=== PATIENT | female | born 1945 | race Caucasian/White ===

== ENCOUNTER 2016-05-28 14:58 | Observation (INO) | payer MEDICARE, OTHER ==
[~2016-05-28] VITALS: Ht 175.3 cm; Wt 85.5 kg
[~2016-05-28 14:58] MED LIST: ALENDRONATE SOD70 MG PO; APRISO0.375 GM PO; CYTOTEC100 MCG PO; HYDROCODON-ACE1 EAC7 PO; IBUPROFEN800 MG PO; LIPITOR40 MG PO; LISINOPRIL5 MG PO; MELATONIN 3 MG1 TAB PO; MELATONIN PO; MIRAPEX0.125 MG PO; MULTI-DAY VITAM1 TAB PO; PERCOCET 5-3251 TAB PO; PREVACID30 MG PO; PRINIVIL10 MG PO; PROBIOTIC1 EAC1 PO; PROSCAR5 MG PO; RESTORIL15 MG PO; TYLENOL PM1 TAB PO; ULTRAM50 MG PO; ZYLOPRIM300 MG PO
[2016-05-28 19:54] LABS: BASOPHILS 0.1 % (0.0-2.0); EOSINOPHILS 0.3 % (0-7); HEMATOCRIT 35.5 % (36.0-48.0); HEMOGLOBIN 11.3 g/dL (12-16); IMMATURE GRANULOCYTES 0.3 % (0-5); LYMPHOCYTES 10.2 % (15-50); MCH 28.7 pg (26.0-34.0); MCHC 31.8 g/dL (31.0-37.0); MCV 90.1 fL (80.0-100.0); MEAN PLATELET VOLUME 10.1 fL (7.4-10.4); MONOCYTES 5.6 % (2-11); NEUTROPHILS 83.5 % (40-80); PLATELET COUNT 303 10x3/uL (130-400); RBC 3.94 10x6/uL (4.00-5.40); RDW 14.7 % (11.5-14.5); WBC 14.4 10x3/uL (4.8-10.8)
[2016-05-28 20:15] LABS: ALBUMIN 4.1 g/dL (3.4-5.0); ANION GAP 14.7 mmol/L (8-16); BILIRUBIN - TOTAL 0.29 mg/dL (0.2-1.3); CALCIUM 10.4 mg/dL (8.5-10.1); CARBON DIOXIDE 25.9 mmol/L (21.0-32.0); CREATININE - SERUM 1.1 mg/dL (0.6-1.3); POTASSIUM - SERUM 4.6 mmol/L (3.5-5.1); PROTEIN - SERUM 6.9 g/dL (6.4-8.2)
[2016-05-28 20:34] LABS: INR 0.95 (0.85-1.17); PROTIME 12.5 SECONDS (11.6-15.0)
--- NOTE | 2016-05-28 21:30 | NUR ---
RECIEVED TO ROOM FROM ER VIA WHEELCHAIR ACCOMPAINIED BY ER STAFF AND . AWAKE,ALERT,ORIENTED, TRANSFERRED TO BED WITH ASSIST. CAST SPLINT INTACT TO RIGHT LOWER LEG.LEFT ANKLE WITH EDEMA NOTED.RIGHT LEG ELEVATED ON PILLOW. SL PATENT TO RIGHT AC WITH NO REDNESS OR EDEMA NOTED.
--- NOTE | 2016-05-29 02:23 | NUR ---
NS @ 75 CC/H STARTED PER ORDERS. NPO AT MN FOR POSSIBLE OR IN AM
[2016-05-29 03:19] VITALS: BP 131/62; Ht 175.3 cm; Wt 85.5 kg
--- NOTE | 2016-05-29 03:19 | NUR ---
ASSESSMENT PER ADMIT PACKET. RT ANKLE WITH JONELLE WRAP AND SPLINT NOTED.
[2016-05-29 04:00] VITALS: BP 99/39
--- NOTE | 2016-05-29 06:32 | NUR ---
NO CHANGE IN ASSESSMENT. CL IN REACH
--- NOTE | 2016-05-29 07:00 | NUR ---
REPORT RECIEVED ASSUMED CARE. PATIENT IN BED WITH IV INTACT. NO COMPLAINTS AT THIS TIME. CALL LIGHT WITHIN REACH.
[2016-05-29] MEDS ORDERED: HYDROCODONE-APA1 TAB PO (07:52)
[2016-05-29 08:08] VITALS: BP 129/69
--- NOTE | 2016-05-29 10:00 | NUR ---
PATIENT RECIEVED DISCHARGE INSTRUCTIONS. VERBALIZED UNDERSTANDING. DRESSING TO RIGHT LOWER EXTREMITY INTACT. RIGHT AC IV REMOVED WITH CATH TIP INTACT. PRESCRIPTION GIVEN TO PATIENT. CALL LIGHT WITHIN REACH.
--- NOTE | 2016-05-29 10:26 | NUR ---
Patient Name: KATELIN LLOYD Admission Status: ER Accout number: [id number] Admission Date: 05-28-2016 : 1945 Admission Diagnosis:NONDISP FX OF LATERAL MALLEOLUS OF RIGHT FIBULA, INIT Attending: LESTER Current LOS: 1 Anticipated DC Date: Planned Disposition: Primary Insurance: MEDICARE A & B Discharge Planning Comments: CM MET WITH PATIENT AND FAMILY REGARDING D/C PLANS AND NEEDS. PATIENT STATED SHE HAS 3 STEPS W/O RAILS TO ENTER HOME AND NO STAIRS INSIDE. PATIENTS FAMILY WILL DRIVE HER HOME AT DISCHARGE. PATIENT IS INDEPENDENT WITH HER CARE AND HAS NO DME AT HOME. PATIENTS PCP IS DR. NEUMANN AND PHARMACY IS [facility]. PATIENT REFUSED HOME HEALTH. PT STATED PATIENT WOULD NEED A WHEELCHAIR AND [employer] WILL DELIVER THIS TO PATIENTS HOME. FAMILY WILL BE PROVIDING THE WALKER. CM WILL CONTINUE TO FOLLOW PATIENT WITH D/C NEEDS AND PLANS. WILL (SPOUSE) [phone] SHALOM (DAUGHTER) [phone] It Business Analyst: Lenore Trivedi Is the patient Alert and Oriented? Yes 0 * How many steps to enter\exit or inside your home? 3 W/O RAIL 0 * PCP DR. NEUMANN 0 * Pharmacy [facility] * Preadmission Environment Home with Family 0 * ADLs Independent 0 * Equipment None 0 * List name and contact numbers for known caregivers / representatives who currently or will assist patient after discharge: WILL (SPOUSE)[phone] SHALOM (DAUGHTER) [phone] 0 * Community resources currently utilized None 0 * Additional services required to return to the preadmission environment? Yes 0 * Can the patient safely return to the preadmission environment? Yes 0 * Has this patient been hospitalized within the prior 30 days at any hospital? No 0 Grand Total: 0
--- NOTE | 2016-06-05 08:25 | DS ---
PATIENT:KATELIN LLOYD :[birth year] MEDICAL RECORD: [id number] DISCHARGE SUMMARY ADMISSION DATE: 05/28/16 DISCHARGE DATE: 05/29/16 ADMITTING DIAGNOSIS: Right ankle fracture. DISCHARGE DIAGNOSIS: Right ankle fracture. HOSPITAL COURSE: Hospitalization occurred after fall last p.m. She reportedly had a significant fracture in the ER, so she was admitted. She has at this juncture been evaluated in the hospital. The fracture does not appear to be significant. It is not displaced. It is felt that she can be discharged. She will need to be nonweightbearing. We will write her for some pain medications. Plan will be to see her back in the office in about 2 weeks. She will call if she is having any problems and we will proceed from this juncture. TRANSINT:[id number] Voice Confirmation ID: [id number] DOCUMENT ID: [id number] VICKY WATKINS MD at 0825 CC: [id number] DICTATION DATE: 05/29/16 0750 HOUSE MOVING SUPERVISOR: 05/29/16 0857 DIS IN 05/29/16 [address] [id number] [place] [address]
--- NOTE | 2016-06-05 08:25 | HP ---
PATIENT: KATELIN LLOYD MEDICAL RECORD: [id number] ACCOUNT: [id number] LOCATION:D.MS [facility] : [birth year] ADMISSION DATE: 05/28/16 HISTORY AND PHYSICAL EXAMINATION DATE OF ADMISSION: 05/28/2016 ADMITTING DIAGNOSIS: Right ankle fracture. HISTORY OF PRESENT ILLNESS: This is a pleasant 70-year-old female. She was taking some groceries when she tripped and fell, twisting her right knee, also hitting her elbow and her knee. PAST MEDICAL HISTORY AND PAST SURGICAL HISTORY: She has a history of hypertension. She has had a colonoscopy, tonsillectomy, cervical ablations procedure. ALLERGIES: She has no known allergies. MEDICATIONS: She has been taking oxycodone, Prevacid, ____, probiotic, Lipitor, Mirapex, Restoril, Ultram, and Prinivil. She has also been on some Tylenol ____. SOCIAL HISTORY: She does not smoke. She drinks occasionally. PHYSICAL EXAMINATION: GENERAL: She is awake. She is oriented. She is answering questions well. HEENT: Within normal limits. CARDIOVASCULAR: Regular rhythm. LUNGS: Clear. ABDOMEN: Benign. EXTREMITIES: She has a bruise on the back of her right arm. She has an abrasion on her right knee. Her ankle is wrapped, she is able to wiggle her toes. Light touch is intact. She is definitely tender about the lateral malleolus, ____ tibia. She is not malaligned. She is only mildly swollen. She is neurovascularly intact. There are no significant lesions noted in any other area. LABORATORY DATA: Her white count is 14.4, H&H is 11.3 and 35.5. Her platelets are 303. Her PT is 12.5, INR is 0.95. IMAGING: X-rays of her left ankle are normal. X-rays of her right ankle show a distal fibula fracture. She does not have any significant displacement noted on these films. A followup CT examination was done as well. This showed just a nondisplaced distal fibula fracture, some mild small fracture and the distal tibia is certainly not displaced. ASSESSMENT: At this juncture, nondisplaced right ankle fracture. PLAN: She needs to be nonweightbearing, but certainly I think she can be not treated operatively. We will discharge her and proceed from this juncture. TRANSINT:[id number] Voice Confirmation ID: [id number] DOCUMENT ID: [id number] HISTORY AND PHYSICAL [id number] KATELIN LLOYD, VICKY RAMIREZ MD at 0825 CC: [id number] DICTATION DATE: 05/29/16 0749 GENERAL PARTNER: 05/29/16 0838 DIS IN 05/29/16 [place] [address] [id number] [place] [id number]
== END 2016-05-29 12:52 | disposition home or self-care (01) ==
LOC: D.ER 14:58 → OBSVTIME 18:32 → D.MS 18:32 → D.ER 20:50 → D.MS 20:50
PROVIDERS: Nurse Practitioner Acute Care; ADMIT Orthopaedic Surgery Sports Medicine
DX: S82.64XA Nondisplaced fracture of lateral malleolus of right fibula, initial encounter for closed fracture (principal); W01.0XXA Fall on same level from slipping, tripping and stumbling without subsequent striking against object, initial encounter

== ENCOUNTER → 2016-12-15 17:06 | Outpatient (CLI) | payer MEDICARE, OTHER ==
[2016-05-29 03:19] VITALS: BMI 27.8
[~2016-12-15 17:06] MED LIST changes: +HYDROCODONE-APA1 TAB PO
== END | disposition home or self-care (01) ==
LOC: D.MAMMO 13:15
DX: Z12.31 Encounter for screening mammogram for malignant neoplasm of breast (principal)

== ENCOUNTER → 2017-12-15 12:43 | Outpatient (CLI) | payer MEDICARE ==
[2016-05-29 03:19] VITALS: BMI 27.8
== END | disposition home or self-care (01) ==
LOC: D.MRI 12:43
DX: M54.6 Pain in thoracic spine (principal)

== ENCOUNTER 2017-12-28 08:00 | Outpatient (CLI) | payer MEDICARE, OTHER ==
[2016-05-29 03:19] VITALS: BMI 27.8
== END 2017-12-28 09:00 | disposition home or self-care (01) ==
LOC: D.MAMMO 08:00
DX: Z12.31 Encounter for screening mammogram for malignant neoplasm of breast (principal)

== ENCOUNTER 2018-06-12 11:47 | Inpatient (IN) | payer MEDICARE ==
[~2018-06-12] VITALS: Ht 175.3 cm; Wt 81.8 kg
[2018-06-12] VITALS (7 sets, daily range): BP systolic 113–155; BP diastolic 58–75; BMI 26.6
--- NOTE | 2018-06-12 12:02 | NUR ---
TRAUMA BAND [id number]
--- NOTE | 2018-06-12 13:21 | NUR ---
REPORT GIVEN TO SIDNEY FAJARDO, UTILIZING SBAR FORMAT.
[2018-06-12 14:18] LABS: BASOPHILS 0.2 % (0-2); EOSINOPHILS 0.2 % (0-7); HEMATOCRIT 37.7 % (36.0-48.0); HEMOGLOBIN 12.1 g/dL (12-16); IMMATURE GRANULOCYTES 0.5 % (0-5); LYMPHOCYTES 14.5 % (15-50); MCH 27.1 pg (26.0-34.0); MCHC 32.1 g/dL (31.0-37.0); MCV 84.3 fL (80.0-100.0); MONOCYTES 5.7 % (2-11); NEUTROPHILS 78.9 % (40-80); PLATELET COUNT 321 10x3/uL (130-400); RBC 4.47 10x6/uL (4.00-5.40); RDW 14.5 % (11.5-14.5); WBC 15.2 10x3/uL (4.8-10.8)
[2018-06-12 14:34] LABS: APTT 22.7 SECONDS (22.8-39.4); INR 1.02 (0.85-1.17); PROTIME 12.9 SECONDS (11.6-15.0)
[2018-06-12 14:37] LABS: ANION GAP 17.2 mmol/L (8-16); BILIRUBIN - TOTAL 0.4 mg/dL (0.2-1.3); CALCIUM 9.5 mg/dL (8.5-10.1); CARBON DIOXIDE 20.5 mmol/L (21.0-32.0); CREATININE - SERUM 1.3 mg/dL (0.6-1.3); POTASSIUM - SERUM 4.7 mmol/L (3.5-5.1); PROTEIN - SERUM 7.2 g/dL (6.4-8.2)
--- NOTE | 2018-06-12 17:41 | NUR ---
PT ARRIVES TO ROOM VIA STRETCHER AND AMBULATES FROM STRETCHER TO BED. FAMILY IS AT BEDSIDE. RIGHT ARM IS BANDAGED. THE PT DOES HAVE A CHIPPED UPPER TOOTH. BED IS IN LOWEST POSITION. CALL LIGHT AND BEDSIDE TABLE ARE WITHIN REACH.
--- NOTE | 2018-06-12 19:45 | NUR ---
PT SITTING UP IN BED, NO SIGNS OF DISTRESS. ALERT AND ORIENTED. IV LEFT AC INFUSING NS @ 125. NO REDNESS OR SWELLING AT INSERTION SITE. RIGHT ARM IN SPLINT, PROPPED. PT UNABLE TO AMBULATE D/T PAIN IN ARM, USED BEDPAN TO VOID. SCDS ON AND IN PLACE. NO NEEDS OR COMPLAINTS AT THIS TIME. CL IN REACH, WILL CONTINUE TO MONITOR
[2018-06-13] VITALS (11 sets, daily range): BP systolic 98–171; BP diastolic 61–78
[2018-06-13 05:32] LABS: BASOPHILS 0.1 % (0-2); EOSINOPHILS 0.7 % (0-7); HEMATOCRIT 32.5 % (36.0-48.0); HEMOGLOBIN 10.3 g/dL (12-16); IMMATURE GRANULOCYTES 0.2 % (0-5); LYMPHOCYTES 21.2 % (15-50); MCH 26.8 pg (26.0-34.0); MCHC 31.7 g/dL (31.0-37.0); MCV 84.4 fL (80.0-100.0); MONOCYTES 12.5 % (2-11); NEUTROPHILS 65.3 % (40-80); PLATELET COUNT 321 10x3/uL (130-400); RBC 3.85 10x6/uL (4.00-5.40); RDW 14.6 % (11.5-14.5)
[2018-06-13 05:42] LABS: WBC 9.1 10x3/uL (4.8-10.8)
[2018-06-13 06:00] LABS: ANION GAP 14.3 mmol/L (8-16); CALCIUM 8.4 mg/dL (8.5-10.1); CARBON DIOXIDE 22.2 mmol/L (21.0-32.0); CREATININE - SERUM 1.1 mg/dL (0.6-1.3); POTASSIUM - SERUM 4.5 mmol/L (3.5-5.1)
--- NOTE | 2018-06-13 07:30 | NUR ---
PT RESTING IN BED AWAKE. REPORTS MILD ANXIETY REGARDING UPCOMING SURGICAL PROCEDURE. RESP EVEN AND [id number]. SPLINT TO RIGHT ARM. FINGERS WARM TO TOUCH, ABLE TO MOVE FINGERS. IV TO LEFT AC WITH NS @ 125ML/HR INFUSING VIA PUMP. SITE WITHOUT REDNESS OR EDEMA. REPORTS PAIN 5/10 AT THIS TIME. DENIES FURTHER NEEDS AT THIS TIME. CL WITHIN REACH. ENCOURAGED TO CALL WITH NEEDS. DENIES FURTHER QUESTIONS REGUARDING UPCOMING PROCEDURE. CONTINUE WITH POC
--- NOTE | 2018-06-13 20:00 | NUR ---
RESTING IN BED C/O PAIN TO RIGHT ARM WHICH HAS JONELLE WRAP IN PLACE, ABLE TO MOVE FINGERS WARM TO TOUCH IV INFUSING WITHOUT DIFFICULTY SCDS IN USE, CALL LIGHT IN REACH WILL MEDICATE FOR PAIN AND CONTINUE TO MONITOR
[2018-06-14] VITALS (7 sets, daily range): BP systolic 88–163; BP diastolic 53–73
[2018-06-14 05:24] LABS: HEMATOCRIT 34.7 % (36.0-48.0); MCH 27.3 pg (26.0-34.0); MCHC 31.7 g/dL (31.0-37.0); MCV 86.1 fL (80.0-100.0); MEAN PLATELET VOLUME 9.5 fL (7.4-10.4); PLATELET COUNT 277 10x3/uL (130-400); RBC 4.03 10x6/uL (4.00-5.40); RDW 14.7 % (11.5-14.5)
[2018-06-14 05:29] LABS: IMMATURE GRANULOCYTES 0.3 % (0-5)
[2018-06-14 05:49] LABS: ANION GAP 19.2 mmol/L (8-16); CALCIUM 8.3 mg/dL (8.5-10.1)
[2018-06-14 06:06] LABS: POTASSIUM - SERUM 5.2 mmol/L (3.5-5.1)
--- NOTE | 2018-06-14 07:15 | NUR ---
MORNING ASSESSMENT COMPLTE. SEE ASSESSMENT FLWOSHEET FOR FURTHER DETAILS. PT LYING IN BED AAO X4 TO PERSON, PLACE, TIME AND SITUATION. REPORTS PAIN TO R SHOULDER- ALERTED DR. SANCHEZ AND WILL CHANGE MEDICATIONS FOR COMFORT. DAUGHTER AT BEDSIDE. DENIES FURTHER NEEDS AT THIS TIME. CL IN REACH. SIDE RAILS UP X3 FOR PATIENT SAFETY
[2018-06-14 07:55] LABS: LYMPHOCYTES 17 % (15-50); MONOCYTES 11 % (2-11); NEUTROPHILS 70 % (40-80); PLATELET ESTIMATE NORMAL; ROULEAUX OCC
--- NOTE | 2018-06-14 12:54 | OP ---
PATIENT NAME: KATELIN LLOYD MEDICAL RECORD: [id number] :[birth year] LOCATION:D.MS [facility]201 ADMISSION DATE:06/12/18 SURGEON: JOSESITO SANCHEZ DO DATE OF OPERATION: 06/13/2018 PROCEDURE PERFORMED: Right olecranon open reduction and internal fixation and radial head arthroplasty. PREOPERATIVE DIAGNOSES: Right comminuted intra-articular olecranon fracture and right radial neck fracture. POSTOPERATIVE DIAGNOSES: Right comminuted intra-articular olecranon fracture and right radial neck fracture. INDICATIONS: Ms. Lloyd is a 72-year-old female who was working at [employer] and slipped and fell. She said she did have a face plant and she broke her elbow as well. She was brought into the ER, seen in the ER and admitted. She was informed, she will need her elbow fixed as it was very comminuted through the articular surface of the olecranon. I informed her I will do the best I could and that she is at good risk for any nerve damage to the nerves in the area, fixing it as well as the need for further surgery, implant failure, and loss of motion of the elbow. She was okay with that and understood the risks as well as blood loss and damage to the nerves, she signed the consent. SURGEON: Josesito Sanchez DO DESCRIPTION OF PROCEDURE: The patient was taken to the operative suite, placed in the left lateral decubitus position with an axillary roll under the axilla. The right upper extremity was prepped and draped in a sterile fashion with a tourniquet under the drapes. The incision then began over the olecranon and then moved slightly radial and the fracture was exposed and the very comminuted olecranon pieces fell out of the articular surface. These were placed on the back table and they are very small, had a very little chance of getting them back in and she had a very difficult time getting the reduction. She had a split down the proximal ulna down the shaft and had a very difficult time reducing it and started to address the radial head. A Tran approach was then used, peeling off the anconeus off the ulna and peeling up into where the radial head was. Radial head neck was cut as the fracture was jagged and had displaced and then broached and reduced and then seemed to be a little proud or a little overstuffed and about 2 mm more were taken off the neck and then a stem was placed down and had a 12 x 200 mm head was used. This was then reduced and then the fracture seemed to displace down the shaft. Plate was then put on in hopes of getting the reduction of the olecranon. This did not occur and after a quite difficult time with some of the pieces, decided to advance the larger piece of the olecranon forward taking out some of the comminuted pieces. Once this happened, a split through the ulna displaced again and then decided to try to use a button to reduce it. This did not work. Then, a [id number] clamp was used to finally getting a good reduction and the screws were placed from one side to the other getting a reduction of the fracture. Four of them were placed. They were 2.5 mm screws. Once this reduction was good, the plate was put back on and locked on the olecranon and then cortical screws were put in the shaft more distally, due to the split they could not put in more proximally. I believe there were 4 screws put in distally, 3 locking and 1 cortical, then several cortical screws have OPERATIVE REPORT [id number] KATELIN LLOYD been taken out prior to getting the final implant in. A home run screw was used through the olecranon plate and into the coronoid. This had a nice bite and good reduction. The elbow was then irrigated and ranged and seen to be very stable. X-rays were taken in AP and lateral x-rays and seemed to be in good position. She had good motion of it. The radial head was in good position as well. Then, a JuggerKnot was used to put back the peeled away tendon through Tran approach to the olecranon itself. This was done laterally and then grabbed some pieces medially as well. This was sutured down and had a nice fixation. A 0 Vicryl was then used to close the muscle bellies of the fascia together over the plate and then 2-0 Vicryl in an inverted-interrupted fashion was used to close the skin in an inverted-interrupted fashion. A ZipLine was placed on the skin. The patient was then awakened and taken to the recovery in stable condition. She did have the tourniquet up during the procedure for 111 minutes. The right upper extremity was esmarched and the tourniquet was inflated to 250 mmHg and at 111 minutes, it was let down. ESTIMATED BLOOD LOSS: Blood loss was approximately 200 mL. COMPLICATIONS: None. TRANSINT:[id number] Voice Confirmation ID: [id number] DOCUMENT ID: [id number] JOSESITO SANCHEZ DO at 1254 CC: [id number] DICTATION DATE: 06/13/18 1735 INVENTORY SPECIALIST MANAGER: 06/13/18 2219 ADM IN [facility] [address] [id number]
--- NOTE | 2018-06-14 13:07 | NUR ---
RESITED PIV TO RIGHT INNER FA X1 ATTEMPT. PT TOLERATED WELL.
[2018-06-15 00:01] VITALS: BP 137/70
--- NOTE | 2018-06-15 01:18 | NUR ---
REC'D. IN BED HOB ELEVATED 30 DEGREES POSTERIOR SPLINT WITH ACEWRAP DRESSING AND SLING IN PLACE. MINIMAL SWELLING TO ALL FINGERS.UNABLE TO ASSESS NAILBEDS FINGERNAILS ALL FIVE HAS NAIL UKRAINIAN ON THEM WIGGLES WITHOUT DIFFICULTY ARM ELEVATED DENIES NUMBNESS. WILL CONTINUE TO ASSESS FOR ANY CHGES IN NEUROVASCULR STATUS AND FOLLOW CURRENT PLAN OF CARE.
[2018-06-15 04:49] VITALS: BP 123/71
[2018-06-15 05:16] LABS: BASOPHILS 0.1 % (0-2); EOSINOPHILS 0.4 % (0-7); HEMATOCRIT 27.9 % (36.0-48.0); IMMATURE GRANULOCYTES 0.4 % (0-5); LYMPHOCYTES 12.7 % (15-50); MCH 26.9 pg (26.0-34.0); MCHC 32.3 g/dL (31.0-37.0); MEAN PLATELET VOLUME 9.3 fL (7.4-10.4); MONOCYTES 9.1 % (2-11); NEUTROPHILS 77.3 % (40-80); PLATELET COUNT 277 10x3/uL (130-400); RBC 3.34 10x6/uL (4.00-5.40); RDW 14.2 % (11.5-14.5); WBC 10.7 10x3/uL (4.8-10.8)
[2018-06-15 05:23] LABS: MCV 83.5 fL (80.0-100.0)
[2018-06-15 05:36] LABS: ANION GAP 12.6 mmol/L (8-16); CALCIUM 7.9 mg/dL (8.5-10.1); CARBON DIOXIDE 22.4 mmol/L (21.0-32.0); CREATININE - SERUM 0.9 mg/dL (0.6-1.3)
--- NOTE | 2018-06-15 07:15 | NUR ---
MORNING ASSESSMENT COMPLETE. SEE ASSESSMENT FLOWSHEET FOR FURTHER DETAILS. PT LYING IN BED AAO X4 TO PERSON, PLACE, TIME AND SITUIATION. C/O R SHOULDER PAIN- WILL GIVE DILAUDID IV WITH MORNING MEDS. PT GETTING UP TO BSC. STATES SHE IN DISCHARGING TODAY. CL IN REACH. SIDE RAILS UP X3 FOR PATIET SAFETY.
[2018-06-15] MEDS ORDERED: KEFLEX500 MG PO (07:30)
[2018-06-15] MEDS ORDERED: OXYCODONE HCL5 M1 PO (07:30)
[2018-06-15] MEDS ORDERED: VISTARIL50 MG PO (07:30)
[2018-06-15 08:00] VITALS: BP 158/76
[2018-06-15 12:30] VITALS: BP 145/64
[2018-06-15 14:59] LABS: HEMATOCRIT 28.1 % (36.0-48.0); HEMOGLOBIN 9.1 g/dL (12-16); MCH 27.2 pg (26.0-34.0); MCHC 32.4 g/dL (31.0-37.0); MCV 83.9 fL (80.0-100.0); RBC 3.35 10x6/uL (4.00-5.40); RDW 14.1 % (11.5-14.5); WBC 10.7 10x3/uL (4.8-10.8)
[2018-06-15 16:00] VITALS: BP 131/55
--- NOTE | 2018-06-15 16:42 | MORECARE ---
CASE MANAGEMENT DISCHARGE SUMMARY PATIENT: KATELIN LLOYD UNIT: [id number] ADM DATE: 06/15/18 AGE: 72 : 46 SEX: F ROOM/BED: D.2202 AUTHOR: SHERYLDOC PHYSICIAN: REFERRING PHYSICIAN: GORDO GUERIN MD DATE OF SERVICE: 06/15/18 Discharge Plan Patient Name: KATELIN LLOYD Facility: [facility]:[place] : 1945 Planned Disposition: Home Anticipated Discharge Date: Discharge Date: Expected LOS: Initial Reviewer: [email or web address] Initial Review Date: 06/12/2018 Generated: 06/15/18 5:42 pm Comments DCP- Discharge Planning Updated by [email or web address]: Janessa Mendez on 06/15/18 3:[address] Patient Name: KATELIN LLOYD Admission Status: ER Accout number: [id number] Admission Date: 06-15-2018 : 1945 Admission Diagnosis: Attending: GORDO GUERIN Current LOS: 1 Anticipated DC Date: Planned Disposition: Home Primary Insurance: [employer] Discharge Planning Comments: CM met with patient to assess discharge planning needs. Patient lives independently at home with her and plans to return there at DC. Her daughter will be the one to drive her home at DC. She denies any DME or HH services and does not think she will need any at DC. She feels like she is safe to DC home. CM will continue to follow and assist with DC planning needs Cupola Liner: Janessa Mendez DCPIA - Discharge Planning Initial Assessment Updated by [email or web address]: Janessa Mendez on 06/15/18 4:38 pm * Is the patient Alert and Oriented? Yes * How many steps to enter\exit or inside your home? * PCP THIEN * [facility] * Preadmission Environment Home with Family * ADLs Independent * Equipment None * List name and contact numbers for known caregivers / representatives who currently or will assist patient after discharge: WILL () [phone] * Verbal permission to speak to the caregivers and representatives has been obtained from the patient. N/A * Community resources currently utilized None * Additional services required to return to the preadmission environment? No * Can the patient safely return to the preadmission environment? Yes * Has this patient been hospitalized within the prior 30 days at any hospital? No Patient Name: KATELIN LLOYD Page [id number] at 1642 All edits/amendments must be made on the electronic document DICTATION DATE: 06/15/181641 HOT STRIP FINISHER: DERREK 06/15/181641 RPT#: [id number] DC DATE: STATUS: ADM IN [facility] [address] [place] [address] END OF REPORT
[2018-06-15 21:25] VITALS: BP 140/62
--- NOTE | 2018-06-16 01:06 | NUR ---
Pt in bed resprations even and unlabored no s/s of distress calll light in reach.
--- NOTE | 2018-06-16 04:49 | NUR ---
1930) REC'D AT [facility]. OF SHIFT IN BED EYES CLOSED RESP. DEEP AND EVEN. AT BEDSIDE.LONG ARM SPLINT WITH ACEWRAP AND SLING INTACT UP ON PILLOW.MINIMAL SWELLING OBSERVED STILL IN ALL FIVE FINGERS.UNABLE TO ACESS NAILBEDS DUE TO ENGLISH. WILL CONTINUE TO MOITOR FOR ANY CHGES. AND FOLLOW CURRENT PLAN OF CARE.
[2018-06-16 06:12] VITALS: BP 147/58
[2018-06-16 06:50] LABS: ANION GAP 14.5 mmol/L (8-16); CARBON DIOXIDE 22.4 mmol/L (21.0-32.0); CREATININE - SERUM 0.9 mg/dL (0.6-1.3); POTASSIUM - SERUM 3.9 mmol/L (3.5-5.1)
[2018-06-16 06:51] LABS: BASOPHILS 0.2 % (0-2); EOSINOPHILS 3.1 % (0-7); HEMATOCRIT 26.4 % (36.0-48.0); HEMOGLOBIN 8.3 g/dL (12-16); IMMATURE GRANULOCYTES 0.3 % (0-5); LYMPHOCYTES 20.4 % (15-50); MCH 26.4 pg (26.0-34.0); MCHC 31.4 g/dL (31.0-37.0); MCV 84.1 fL (80.0-100.0); MEAN PLATELET VOLUME 9.3 fL (7.4-10.4); MONOCYTES 10.4 % (2-11); NEUTROPHILS 65.6 % (40-80); PLATELET COUNT 284 10x3/uL (130-400); RBC 3.14 10x6/uL (4.00-5.40); RDW 14.3 % (11.5-14.5); WBC 8.8 10x3/uL (4.8-10.8)
--- NOTE | 2018-06-16 07:42 | NUR ---
PT ALERT X 4. BREATH SOUNDS CLEAR BILAT. RIGHT ARM CAST AND SLING. RIGHT HAND +1 EDEMA. IV TO LEFT FOREARM, SALINE LOCKED. TRACE EDEMA TO BILAT LOWER EXTREMITIES. PT REPORTING NO PAIN THIS MORNING. BED LOW, CALL LIGHT IN REACH, NO OTHER NEEDS AT THIS TIME.
[2018-06-16 09:13] VITALS: BP 131/68
--- NOTE | 2018-06-16 10:00 | NUR ---
RESTING QUIETLY IN BED. DENIES NEEDS. FAMILY AT BEDSIDE.
--- NOTE | 2018-06-16 10:55 | NUR ---
REQUESTED AND GIVNE ONE OXY IR PO FOR C/O RIGHT ARM PAIN LEVEL 8. WILL MONITOR.
[2018-06-16 15:16] VITALS: BP 144/74
[2018-06-16 16:57] LABS: % SATURATION 9 % (15-55); IRON 15 ug/dl (35-150); TOTAL IRON BIND CAPACITY 165 ug/dl (260-445); UNSAT IRON BIND CAPACITY 150 ug/dl (150-375)
[2018-06-16 17:18] VITALS: Ht 175.3 cm; Wt 81.8 kg
[2018-06-16 17:52] VITALS: BP 120/62
--- NOTE | 2018-06-16 20:00 | NUR ---
HAD GOOD BM AFTER DULCOLAX SUPPOSITORY. SPECIMEN SENT TO LAB. DR. SANCHEZ HERE AND CHANGED DRESSING TO RIGHT ARM. DENIES NEEDS. NO CHANGES NOTED.
[2018-06-16 22:18] VITALS: BP 127/60
[2018-06-17 01:51] VITALS: BP 135/70
--- NOTE | 2018-06-17 03:32 | NUR ---
RESTING QUITELY IN BED RESP UNLABOARED CALL LIGHT IN REACH NO APPARENT DISTRESS
[2018-06-17 05:05] LABS: BASOPHILS 0.2 % (0-2); EOSINOPHILS 3.7 % (0-7); HEMATOCRIT 26.4 % (36.0-48.0); HEMOGLOBIN 8.4 g/dL (12-16); IMMATURE GRANULOCYTES 0.2 % (0-5); LYMPHOCYTES 20.8 % (15-50); MCH 26.7 pg (26.0-34.0); MCHC 31.8 g/dL (31.0-37.0); MCV 83.8 fL (80.0-100.0); MONOCYTES 9.9 % (2-11); NEUTROPHILS 65.2 % (40-80); PLATELET COUNT 324 10x3/uL (130-400); RBC 3.15 10x6/uL (4.00-5.40); RDW 14.2 % (11.5-14.5); WBC 8.7 10x3/uL (4.8-10.8)
[2018-06-17 05:29] LABS: ANION GAP 12.7 mmol/L (8-16); CALCIUM 8.6 mg/dL (8.5-10.1); CARBON DIOXIDE 25.8 mmol/L (21.0-32.0); POTASSIUM - SERUM 3.5 mmol/L (3.5-5.1); THYROID STIMULATING HORMONE 0.18 uIU/mL (0.36-3.74)
[2018-06-17 05:30] VITALS: BP 133/64
[2018-06-17 08:44] VITALS: BP 138/69
[2018-06-17 11:45] VITALS: BP 136/70
[2018-06-17 11:52] VITALS: BP 82/57
--- NOTE | 2018-06-17 11:53 | NUR ---
HINGED PILLOW BRACE ON RIGHT ELBOW. CO PAIN AT 9. WILL CONTINUE TO MONITOR
[2018-06-17] MEDS ORDERED: FERROUS SULFAT325 MG PO (12:02)
--- NOTE | 2018-06-17 13:35 | MORECARE ---
CASE MANAGEMENT DISCHARGE SUMMARY PATIENT: KATELIN LLOYD UNIT: [id number] ADM DATE: 06/15/18 AGE: 72 : 46 SEX: F ROOM/BED: D.2202 AUTHOR: CANDICE SAUCEDO PHYSICIAN: REFERRING PHYSICIAN: GORDO GUERIN MD DATE OF SERVICE: 06/17/18 Discharge Plan Patient Name: KATELIN LLOYD Facility: [facility]:[place] : 1945 Planned Disposition: Home Anticipated Discharge Date: Discharge Date: Expected LOS: Initial Reviewer: [email or web address] Initial Review Date: 06/12/2018 Generated: 06/17/18 2:35 pm Comments DCP- Discharge Planning Updated by [email or web address]: Janessa Mendez on 06/17/18 12:[address] Patient Name: KATELIN LLOYD Encounter No: [id number] : 1945 Primary Insurance: [employer] Anticipated DC Date: Planned Disposition: Home External Planned Provider: : DCP follow-up note: Patient and family in agreement with discharge plan. No changes to plan. Case management will follow and assist as needed. Janessa Mendez DCP- Discharge Planning Updated by [email or web address]: Janessa Mendez on 06/15/18 3:[address] Patient Name: KATELIN LLOYD Admission Status: ER Accout number: [id number] Admission Date: 06-15-2018 : 1945 Admission Diagnosis: Attending: GORDO GUERIN Current LOS: 1 Anticipated DC Date: Planned Disposition: Home Primary Insurance: [employer] Discharge Planning Comments: CM met with patient to assess discharge planning needs. Patient lives independently at home with her and plans to return there at DC. Her daughter will be the one to drive her home at DC. She denies any DME or HH services and does not think she will need any at DC. She feels like she is safe to DC home. CM will continue to follow and assist with DC planning needs Pineapple Plantation Manager: Janessa Mendez DCPIA - Discharge Planning Initial Assessment Updated by [email or web address]: Janessa Mendez on 06/15/18 4:38 pm * Is the patient Alert and Oriented? Yes * How many steps to enter\exit or inside your home? * PCP THIEN * Pharmacy [facility] * Preadmission Environment Home with Family * ADLs Independent * Equipment None * List name and contact numbers for known caregivers / representatives who currently or will assist patient after discharge: WILL () [phone] * Verbal permission to speak to the caregivers and representatives has been obtained from the patient. N/A * Community resources currently utilized None * Additional services required to return to the preadmission environment? No * Can the patient safely return to the preadmission environment? Yes * Has this patient been hospitalized within the prior 30 days at any hospital? No Last DP export: 06/15/18 3:42 pm Patient Name: KATELIN LLOYD Page 32043 at 1335 All edits/amendments must be made on the electronic document DICTATION DATE: 06/17/181333 WALLPAPER REMOVER STEAM: DERREK 06/17/181333 RPT#: [id number] DC DATE: STATUS: ADM IN [facility] [address] [place] [address] END OF REPORT
[2018-06-18 11:26] LABS: ERYTHROPOIETIN 64.8 mIU/mL (2.6-18.5)
--- NOTE | 2018-06-18 16:54 | MORECARE ---
CASE MANAGEMENT DISCHARGE SUMMARY PATIENT: KATELIN LLOYD UNIT: [id number] ADM DATE: 06/15/18 AGE: 72 : [birth year] SEX: F ROOM/BED: D.2202 AUTHOR: CANDICE SAUCEDO PHYSICIAN: REFERRING PHYSICIAN: GORDO GUERIN MD DATE OF SERVICE: 06/18/18 Discharge Plan Patient Name: KATELIN LLOYD Facility: [facility]:[place] : 1945 Planned Disposition: Home Anticipated Discharge Date: Discharge Date: 06/17/2018 Expected LOS: 0 Initial Reviewer: [email or web address] Initial Review Date: 06/12/2018 Generated: 06/18/18 5:54 pm Comments DCP- Discharge Planning Updated by [email or web address]: Janessa Mendez on 06/17/18 12:[address] Patient Name: KATELIN LLOYD Encounter No: [id number] : 1945 Primary Insurance: [employer] Anticipated DC Date: Planned Disposition: Home External Planned Provider: : DCP follow-up note: Patient and family in agreement with discharge plan. No changes to plan. Case management will follow and assist as needed. aJnessa Mendez DCP- Discharge Planning Updated by [email or web address]: Janessa Mendez on 06/15/18 3:[address] Patient Name: KATELIN LLOYD Admission Status: ER Accout number: [id number] Admission Date: 06-15-2018 : 1945 Admission Diagnosis: Attending: GORDO GUERIN Current LOS: 1 Anticipated DC Date: Planned Disposition: Home Primary Insurance: [employer] Discharge Planning Comments: CM met with patient to assess discharge planning needs. Patient lives independently at home with her and plans to return there at DC. Her daughter will be the one to drive her home at DC. She denies any DME or HH services and does not think she will need any at DC. She feels like she is safe to DC home. CM will continue to follow and assist with DC planning needs Claims Manager: Janessa Mendez DCPIA - Discharge Planning Initial Assessment Updated by [email or web address]: Janessa Mendez on 06/15/18 4:38 pm * Is the patient Alert and Oriented? Yes * How many steps to enter\exit or inside your home? * PCP THIEN * [facility] [address] * Preadmission Environment Home with Family * ADLs Independent * Equipment None * List name and contact numbers for known caregivers / representatives who currently or will assist patient after discharge: WILL () [phone] * Verbal permission to speak to the caregivers and representatives has been obtained from the patient. N/A * Community resources currently utilized None * Additional services required to return to the preadmission environment? No * Can the patient safely return to the preadmission environment? Yes * Has this patient been hospitalized within the prior 30 days at any hospital? No Last DP export: 06/17/18 12:35 pm Patient Name: KATELIN LLOYD Page 07957 at 1654 All edits/amendments must be made on the electronic document DICTATION DATE: 06/18/181653 DRAIN TECHNICIAN: DERREK 06/18/181653 RPT#: [id number] DC DATE:06/17/18 STATUS: DIS IN [facility] [address] [place] [address] END OF REPORT
== END 2018-06-17 15:54 | disposition home or self-care (01) | DRG 511 ==
LOC: D.ER 11:47 → D.MS 15:37 → D.EDHOLD 15:37 → OBSVTIME 15:37 → D.MS 17:11
PROVIDERS: Family Medicine; Internal Medicine Hematology & Oncology; Orthopaedic Surgery; ADMIT Internal Medicine Nephrology
PROC: 0PRH0JZ Replacement of Right Radius with Synthetic Substitute, Open Approach (ICD-10-PCS; 2018-06-13)
PROC: 0PSK04Z Reposition Right Ulna with Internal Fixation Device, Open Approach (ICD-10-PCS; principal; 2018-06-13 09:00)
DX: S52.031A Displaced fracture of olecranon process with intraarticular extension of right ulna, initial encounter for closed fracture (principal); N17.9 Acute kidney failure, unspecified; S52.131A Displaced fracture of neck of right radius, initial encounter for closed fracture; W01.0XXA Fall on same level from slipping, tripping and stumbling without subsequent striking against object, initial encounter; I10 Essential (primary) hypertension; E78.5 Hyperlipidemia, unspecified; D50.9 Iron deficiency anemia, unspecified; R55 Syncope and collapse

== ENCOUNTER → 2018-07-26 09:03 | Outpatient (CLI) | payer MEDICARE ==
[2018-06-16 17:18] VITALS: BMI 26.6
[~2018-07-26 09:03] MED LIST changes: +FERROUS SULFAT325 MG PO; +KEFLEX500 MG PO; +OXYCODONE HCL5 M1 PO; +VISTARIL50 MG PO
== END | disposition home or self-care (01) ==
LOC: D.HCCARDIO 09:03
PROVIDERS: ATTEND Internal Medicine Cardiovascular Disease
DX: R55 Syncope and collapse (principal)

== ENCOUNTER 2018-08-16 10:43 | Outpatient (CLI) | payer MEDICARE ==
[~2018-08-16] VITALS: Ht 175.3 cm; Wt 82.7 kg
--- NOTE | ~2018-08-16 | HEMODYNAMI ---
PATIENT:KATELIN LLOYD MEDICAL RECORD: [id number] : 47 LOCATION:D.CAT ADMISSION DATE: 08/16/18 Generatedon:08/16/201813:37 Patient name: KATELIN LLOYD Patient #: [id number] SSN: : 1945 Date of study: 08/16/2018 Page: Of Hemodynamic Procedure Report Patient Data Patient Demographics Procedure consent was obtained First Name: KATELIN Gender: Female Last Name: PREMA : 1945 [facility] Initial: L Age: 72 year(s) Patient #: [id number] Race: Unknown Additional ID: [id number] Contact details Address: [address] [place] [address] COURT State: [place] [facility] [place]: [address] Past Medical History Allergies: No known allergies Admission Admission Data Admission Date: 08/16/2018 Admission Time: 10:43 Height (in.): 69 BSA: 1.98 (m2) Height (cm.): 175.26 BMI: 26.88 (kg/m2) Weight (lbs.): 182 Weight (kg.): 82.55 Procedure Procedure Types Cath Procedure Diagnostic Procedure LHC LH w/Coronaries Sedation Charges Moderate Sedation up to 30 minutes PCI Procedure Coronary Stent Coronary Stent Initial Peripheral Cath Diagnostic Procedure Pier Hand Peripheral Procedures Four Vessel Arteriogram Procedure Description Procedure Date Procedure Date: 08/16/2018 Procedure Start Time: 13:02 Procedure End Time: 13:31 Procedure Staff Name Function Neris Mcrae RT Scrub José Miguel Aldana RT Line Welder Hi Park RN Nurse Hiren Okeefe RN Line Welder Myles Becerril MD Performing Physician Mandi Braga RT Monitor Procedure Data Cath Procedure Fluoroscopy Diagnostic fluoroscopy Total fluoroscopy Time: 5.8 time: 5.8 min min Diagnostic fluoroscopy Total fluoroscopy dose: 724 dose: 724 mGy mGy Contrast Material Contrast Material Type Amount (ml) Isovue 300 154 Entry Location Entry Primary Successful Side Size Upsize Upsize Entry Closure Succes sful Closure Location (Fr) 1 (Fr) 2 (Fr) Remarks Device Remarks Femoral Right 5 Fr 6 Fr Exoseal artery Short Estimated blood loss: 10 ml Diagnostic catheters Device Type Used For End Catheter Placement MULTIPACK JL 4.0 5Fr Procedure catheter MULTIPACK 3DRC 5Fr Procedure catheter DIAGNOSTIC IM 5Fr Procedure catheter ([id number]) MULTIPACK Pigtail 5 Fr Procedure catheter Procedure Complications No complications Procedure Medications Medication Administration Route Dosage Oxygen NRB 2 l/min Heparin Flush Bag added to field 2 bags (1000units/500ml NS) 0.9% NaCl I.V. 100 ml/hr Lidocaine 2% added to field 20 Versed I.V. 1 mg Fentanyl I.V. 50 mcg Versed I.V. 1 mg Fentanyl I.V. 50 mcg Versed I.V. 1 mg Fentanyl I.V. 50 mcg Heparin Bolus I.V. 8000 units Plavix P.O. 600 mg Hemodynamics Rest BSA: 1.98 (m2) O2 Consumption: Estimated: 191.21 (ml/min) O2 Consumption indexed : Estimated:96.57 (ml/min/m) Heart Rate: 82 (bpm) Pressure Samples Time Site Value (mmHg) Purpose Heart Use Rate(bpm) 13:10 LV 125/-4,11 EDP 91 13:10 LV 127/-1,7 Pullback 89 13:10 AO 115/59(83) Pullback 89 Gradients Valve Time Site 1 Site 2 Mean SEP/DFP Peak To Heart Use (mmHg) (sec/min) Peak Rate (mmHg) (bpm) Aortic 13:10 LV AO 13 26 12 89 127/-1,7 115/59(83) Calculations Valve P-P Mean Valve Index Valve Source Name Gradient Area Flow (cm2) Aortic 12 13 12 13 Snapshots Pre Cath Intra NCS Post Cath Vital Signs Time Heart Resp SPO2 etCO2 NIBP (mmHg) Rhythm Pain Sedation Rate (ipm) (%) (mmHg) Status Level (bpm) 12:49:33 83 17 98 0 135/76(112) NSR 0 (11) 10(A) , No pain 12:53:51 80 16 99 32 128/74(111) NSR 0 (11) 10(A) , No pain 12:58:01 83 12 98 32.8 121/73(95) NSR 0 (11) 10(A) , No pain 13:02:09 84 19 97 2.2 109/68(96) NSR 0 (11) 9(A) , No pain 13:06:19 88 18 95 11.1 110/64(80) NSR 0 (11) 9(A) , No pain 13:10:28 93 18 97 26.8 115/63(83) NSR 0 (11) 9(A) , No pain 13:14:40 95 16 97 41 116/68(87) NSR 0 (11) 9(A) , No pain 13:18:52 95 12 98 38.7 119/66(94) NSR 0 (11) 9(A) , No pain 13:23:04 96 17 99 39.5 120/70(89) NSR 0 (11) 9(A) , No pain 13:27:16 94 15 99 27.5 126/74(93) NSR 0 (11) 10(A) , No pain Medications Time Medication Route Dose Verified Delivered Reason Notes Effectiveness by by 12:53:37 Oxygen NRB 2 Hi Myles Per physician l/min Xavier Becerril MD RN 12:53:45 Heparin Flush added 2 Hi Myles used for Bag to bags Xavier Becerril MD procedure (1000units/500ml field RN NS) 12:53:56 0.9% NaCl I.V. 100 Hi Myles Per physician ml/hr Xavier Becerril MD RN 12:54:07 Lidocaine 2% added 20ml Hi Myles for local to vial Xavier Becerril MD anesthetic field RN 12:59:07 Versed I.V. 1 mg Hi Hi for sedation Xavier Park RN RN 12:59:14 Fentanyl I.V. 50 Hi Hi for sedation mcg Xavier Park RN RN 13:03:02 Versed I.V. 1 mg Hi Hi for sedation Xavier Park RN RN 13:03:06 Fentanyl I.V. 50 Hi Hi for sedation mcg Xavier Park RN RN 13:07:22 Versed I.V. 1 mg Hi Hi for sedation Xavier Park RN RN 13:07:26 Fentanyl I.V. 50 Hi Hi for sedation mcg Xavier Park RN RN 13:17:13 Heparin Bolus I.V. 8000 Hi Buffie for verifi ed units Xavier Okeefe RN anticoagulation with dr SIDNEY becerril 13:28:25 Plavix P.O. 600 Hi Maradiaga for mg Xavier Okeefe RN antiplatelet RN therapy Procedure Log Time Note 12:34:45 Time tracking: Regular hours (M-F 7:00 - 5:00) 12:34:49 Plan of Care:Hemodynamics will remain stable., Cardiac rhythm will remain stable., Comfort level will be maintained., Respiratory function will remain adequate., Patient/ family verbilizes understanding of procedure., Procedure tolerated without complication., Recovers from procedure without complications.. 12:37:32 Neris Counts RT(R) sent for patient. Start room use. 12:42:13 Patient received from Pre/Post Procedure Room to CCL 1 Alert and oriented. Tansferred to table in Supine position. 12:42:15 Correct patient and procedure confirmed by team. 12:42:15 Warm blankets applied, and bipin hugger turned on for patient comfort. 12:42:17 ECG and BP/O2 sat monitors applied to patient. 12:42:18 Signed procedure consent form obtained from patient. 12:48:23 Vital chart was started 12:48:27 Rhythm: sinus rhythm 12:48:29 Full Disclosure recording started 12:50:55 H&P Date Dictated: 07/19/2018 Within 30 days and on chart., H&P Addendum completed by physician on day of procedure. (MUST COMPLETE FOR ALL OUTPATIENTS). 12:50:56 Pre-op teaching completed and patient verbalized understanding. 12:50:56 Pre-procedure instructions explained to patient. 12:50:57 Family in patients room. 12:50:59 Patient NPO since Midnight. 12:51:04 Patient allergic to No known allergies 12:51:06 Is patient on blood thinner?No 12:51:07 Patient diabetic? No. 12:51:23 Previous problem with sedation/anesthesia? No ? 12:51:24 Snore? Yes 12:51:25 Sleep apnea? No 12:51:26 Deviated septum? No 12:51:27 Sticks out tongue? Yes 12:51:27 Opens mouth fully? Yes 12:51:29 Airway obstruction? No ? 12:51:31 Dentures? No ? 12:51:34 Pre procedure: right dorsailis pedis pulse 2+ Normal; easily identifiable; not easily obliterated 12:51:39 IV patent on arrival in left forearm with 0.9% NaCl at [facility]. 12:51:44 Right groin area was prepped with chlora-prep and draped in sterile fashion 12:51:45 Alarms reviewed by R. N. 12:51:46 Sharps counted by scrub and verified by R.N. 12:51:48 Use device set Femoral Dx 12:51:50 Bag Decanter (2002S) opened to sterile field. 12:51:50 ACIST Syringe (42234) opened to sterile field. 12:51:51 ACIST Manifold (54150) opened to sterile field. 12:51:51 ACIST Hand Control (50997) opened to sterile field. 12:51:52 Tegaderm 4 x 4 (1626W) opened to sterile field. 12:51:53 Medline Cath Pack ([id number]) opened to sterile field. 12:51:54 DIAGNOSTIC WIRE .035 260cm J wire (797710) opened to sterile field. 12:51:55 SHEATH 5FR [place]val[place] (IJZ797) opened to sterile field. 12:51:55 DIAGNOSTIC Multipack 5Fr catheter set ([id number]) opened to sterile field. 12:53:37 Oxygen 2 l/min NRB was administered by Myles Becerril MD; Per physician; 12:53:45 Heparin Flush Bag (1000units/500ml NS) 2 bags added to field was administered by Myles Becerril MD; used for procedure; 12:53:56 0.9% NaCl 100 ml/hr I.V. was administered by Myles Becerril MD; Per physician; 12:54:07 Lidocaine 2% 20ml vial added to field was administered by Myles Becerril MD; for local anesthetic; 12:56:08 Baseline sample Acquired. 12:56:14 --------ALL STOP TIME OUT------ 12:56:15 Final Timeout: patient, procedure, and site verified with staff and physician. All members of the team are in agreement. 12:56:16 Right groin site verified by team. 12:57:17 Maximum allowable Isovue 300 dose 300ml. Physician notified. (300ml for normal creatinines. For patients with creatinine of 1.7 or higher multiply weight(kg) x 5 divided by creatinine.) 12:57:22 Fire Safety Assessment: A--An alcohol-based skin anteseptic being used preoperatively., C--Open oxygen or nitrous oxide is being used., D--An ESU, laser, or fiber-optic light is being used. 12:57:24 Physical assessment completed. ASA score P 2 - A patient with mild systemic disease as per Myles Becerril MD. 12:57:28 Sedation plan: IV Moderate Sedation Medication:Versed, Fentanyl 12:58:05 Procedure type changed to Cath procedure, Diagnostic procedure, LHC, LHC w/Coronaries, Sedation Charges, Moderate Sedation up to 30 minutes, PCI procedure, Coronary Stent, Coronary Stent Initial, Peripheral Cath Diagnostic Procedure, Pier Hand Peripheral Procedures, Four Vessel Arteriogram 12:58:17 Patient Height : 69 inches 12:58:20 Patient Weight : 182 lbs 12:59:07 Versed 1 mg I.V. was administered by Hi Park RN; for sedation; 12:59:14 Fentanyl 50 mcg I.V. was administered by Hi Park RN; for sedation; 13:02:25 Zero performed for pressure channel P1 13:02:35 Procedure started. 13:02:46 Zero performed for pressure channel P1 13:02:53 Local anesthetic to right femoral artery with Lidocaine 2% by Myles Becerril MD.INITIAL ACCESS ONLY 13:03:02 Versed 1 mg I.V. was administered by Hi Park RN; for sedation; 13:03:06 Fentanyl 50 mcg I.V. was administered by Hi Park RN; for sedation; 13:04:16 A 5 Fr sheath was inserted into the Right Femoral artery 13:04:42 A MULTIPACK JL 4.0 5Fr catheter was advanced over the wire and used for Procedure. 13:07:08 LCA angiography performed. 13:07:10 Catheter exchanged over wire. 13:07:22 Versed 1 mg I.V. was administered by Hi Park RN; for sedation; 13:07:26 Fentanyl 50 mcg I.V. was administered by Hi Park RN; for sedation; 13:07:49 A MULTIPACK 3DRC 5Fr catheter was advanced over the wire and used for Procedure. 13:08:32 RCA angiography performed. 13:08:49 Catheter exchanged over wire. 13:09:30 A MULTIPACK Pigtail 5 Fr catheter was advanced over the wire and used for Procedure. 13:09:37 LV gram done using MORENO 13:09:39 Injector settings: Ml/sec: 10, Volume: 20, 13:10:07 LV hemodynamics recorded. 13:10:21 EF : 55 % 13:10:34 Catheter exchanged over wire. 13:11:09 A DIAGNOSTIC IM 5Fr catheter ([id number]) was advanced over the wire and used for Procedure. 13:12:25 Right carotid angiography performed. 13:13:17 Left carotid angiography performed. 13:13:24 Catheter exchanged over wire. 13:14:31 SHEATH 6FR [place] (HJA906) opened to sterile field. 13:14:33 INFLATOR Merit BasixCompak (GU7683) opened to sterile field. 13:14:34 TUBING High Pressure Extension Tubing (Jone) (GP1535Q) opened to sterile field. 13:14:34 BMW 300cm Straight Lefors 2 wire (2756973) opened to sterile field. 13:14:42 Sheath upsized to a 6 Fr Short. 13:14:52 GUIDE 6FR XBLAD 3.5 catheter ([id number]) opened to sterile field. 13:15:37 6 Fr XBLAD 3.5 guide catheter was inserted over the wire 13:17:13 Heparin Bolus 8000 units I.V. was administered by Hiren Okeefe RN; for anticoagulation; verified with dr becerril 13:18:31 BMW 300 wire advanced. 13:19:03 Wire advanced across lesion. 13:24:04 Place stent Inflation Number: 1 A MUKESH OTW 3.5 x 26 stent ([id number]) was prepped and advanced across the Prox LAD. The stent was deployed at 12 CASTILLO for 0:10 (min:sec). 13:24:52 Stent catheter was removed intact over wire. 13:24:53 Wire removed. 13:24:54 Guide catheter removed. 13:25:07 EXOSEAL 6Fr (EX600) opened to sterile field. 13:26:02 Sheath removed intact; hemostasis achieved with Exoseal to the Right Femoral artery. 13:26:07 Procedure ended.(Physican Out) ::24 Fluoroscopy time 05.80 minutes. ::28 Fluoroscopy dose: 724 mGy 13:26:28 Flurop Dose total: 724 13:26:34 Contrast amount:Isovue 300 154ml. 13:26:36 Sharps counted by scrub and verified by R.N. 13:27:08 Post-op/insertion site Right Femoral artery dressed using a 4 x 4 and Tegaderm. 13:27:11 Post-procedure physical assessment completed. ASA score P 2 - A patient with mild systemic disease as per Myles Becerril MD. 13:27:21 Post procedure rhythm: sinus rhythm 13::23 Estimated blood loss: 10 ml 13:27:25 Patient needs reinforcement of post procedure teaching. 13:27:25 Post procedure instruction explained to patient.Patient verbalizes understanding. 13:28:12 Procedure and supply charges have been captured, reviewed, submitted and are correct. 13:28:15 Procedure Complication : No complications 13:28:25 Plavix 600 mg P.O. was administered by Hiren Okeefe RN; for antiplatelet therapy; 13:30:57 Vital chart was stopped 13:30:58 See physician's report for complete and final results. 13:30:59 Report given to Pre/Post Procedure Room. 13:31:02 Patient transfered to Pre/Post Procedure Room with Bed. 13:31:04 Full Disclosure recording stopped 13:31:04 Procedure ended. 13:31:08 End room use (Document Last) 13:36:33 FEMSTOP Gold ([id number]) opened to sterile field. 13:36:43 Femstop placed over the right femoral artery at 160 mmHg. Hemostasis achieved. Intervention Summary Intervention Notes Time ActionType Lesion and Equipment Action# Pressure Duration Attributes Used 13:24:04 Place stent Prox LAD MUKESH OTW 3.5 1 12 00:10 x 26 stent ([id number]) Device Usage Item Name Manufacture Quantity Catalog Hospital Part Current Mini mal Lot# / Number Charge Number Stock Stock Serial# Code ACIST Syringe Acist 1 76632 690788 911202 379636 20 (89635) Medical Systems Inc Bag Decanter Microtek 1 625363 20818 382522 5 () Medical Inc. ACIST Hand Acist 1 66057 806623 391771 899464 5 Control Medical (60264) Systems Inc ACIST Acist 1 47175 527425 146191 311642 5 Manifold Medical (91466) Systems Inc Tegaderm 4 x 3M 1 1626W 689264 520467 641398 5 4 (1626W) Medline Cath Medline 1 [id number] 224666 61457 802919 5 Pack ([id number]) DIAGNOSTIC St Jonathan 1 746592 993062 690250 189468 30 WIRE .035 260cm J wire (193549) DIAGNOSTIC Cardinal 1 NF4251 096703 48785 651381 30 Multipack 5Fr Health catheter set (JP2361) SHEATH 5FR Terumo 1 IEJ478 925439 059211 169599 5 [place]valde (JVA422) MULTIPACK JL Cardinal 1 128147 5 4.0 5Fr Health catheter MULTIPACK Cardinal 1 438155 5 3DRC 5Fr Health catheter DIAGNOSTIC IM Cardinal 1 [id number] 271277 199786 783195 5 5Fr catheter Health (718532M) MULTIPACK Cardinal 1 502391 5 Pigtail 5 Fr Health catheter SHEATH 6FR Terumo 1 NUX026 823709 287738 654391 40 [place]valde (CIP472) INFLATOR Merit 1 JX6937 320831 591092 948983 15 [facility] Medical BasixCompak (ZY7288) BMW 300cm Orlando 1 [id number] 093551 579569 498894 5 Straight Vascular Lefors 2 wire (4651069) TUBING High Merit 1 [id number] 665541 38666 218383 10 Pressure Medical Extension Tubing (Becerril) (IC8259T) GUIDE 6FR Cardinal 1 38563014 167395 236440 679984 10 XBLAD 3.5 Health catheter (06004360) MUKESH OTW 3.5 Medtronic 1 [id number] 753676 3123276 817081 5 [id number] x 26 stent ([id number]) EXOSEAL 6Fr Cardinal 1 EX600 841999 989836 746480 10 (EX600) Health FEMSTOP Gold St Jonathan 1 A22754 952776 371895 226312 5 (R81851) Signature Audit [place] Stage Time Signature Unsigned Intra-Procedure 08/16/2018 Mandi Braga RT(R) 1:31:23 PM RT(R) 08/16/2018 1:36:23 PM Intra-Procedure 08/16/2018 Mandi Braga 1:37:16 PM RT(R) Signatures Monitor : Mandi Braga Signature : RT Date : Time : [place] [id number] [place] [address]
[2018-08-16] MEDS ORDERED: ULTRAM50 MG PO (11:06)
[2018-08-16] MEDS ORDERED: PROBIOTIC BLEN1 EACH (11:07)
[2018-08-16] MEDS ORDERED: VITAMIN D31000 UNIT PO (11:08)
[2018-08-16 11:19] VITALS: BP 140/68; Ht 175.3 cm; Wt 82.7 kg
[2018-08-16 11:22] LABS: BASOPHILS 0.4 % (0-2); EOSINOPHILS 1.2 % (0-7); HEMATOCRIT 40.6 % (36.0-48.0); IMMATURE GRANULOCYTES 0.3 % (0-5); LYMPHOCYTES 27.6 % (15-50); MCH 26.6 pg (26.0-34.0); MEAN PLATELET VOLUME 8.9 fL (7.4-10.4); MONOCYTES 8.4 % (2-11); NEUTROPHILS 62.1 % (40-80); PLATELET COUNT 347 10x3/uL (130-400); RBC 4.89 10x6/uL (4.00-5.40); RDW 13.8 % (11.5-14.5); WBC 7.5 10x3/uL (4.8-10.8)
[2018-08-16 11:31] LABS: ANION GAP 15.3 mmol/L (8-16); CALCIUM 10.3 mg/dL (8.5-10.1); CARBON DIOXIDE 24.2 mmol/L (21.0-32.0); CREATININE - SERUM 1.1 mg/dL (0.6-1.3); POTASSIUM - SERUM 4.5 mmol/L (3.5-5.1)
[2018-08-16] MEDS ORDERED: PLAVIX75 MG PO (13:38)
--- NOTE | 2018-08-16 13:50 | NUR ---
RECIEVED TO ROOM VIA STRETCHER FROM SUPPOSITORY MOLDING MACHINE OPERATOR WITH FEMSTOP TO R/GROIN PRESSURE AT 150. PATIENT CONNECTED TO MONITOR FOR OBSERVATION WITH HR 91 BP 143/80 CHEST PAIN IS DENIED. INSTRUCTED PATIENT TO KEEP HEAD FLAT ON PILLOW WITH RLE STRAIGHT
--- NOTE | 2018-08-16 13:59 | NUR ---
FEMSTOP REMAINS AT 150 TO R/GROIN WITH AREA CLEAN AND DRY NO BLEEDING NOTED. HR 88 BP 129/73 PATIENT DENIED CHEST PAIN. INSTRUCTED PATIENT TO KEEP HEAD FLAT ON PILLOW WITH RLE STRAIGHT
--- NOTE | 2018-08-16 14:09 | NUR ---
PATIENT RESTING QUIETLY WITH CHEST PAIN DENIED. VSS AND FEMSTOP REMAINS AT 150 TO R/GROIN. FAMILY IS PRESENT AT BEDSIDE
--- NOTE | 2018-08-16 14:24 | NUR ---
PATIENT DENIED PAIN OR NEEDS. HR 84 BP 119/67 FEMSTOP TO R/GROIN REMAINS IN PLACE WITH PRESSURE AT 150 NO BLEEDING NOTED
--- NOTE | 2018-08-16 14:39 | NUR ---
PRESSURE TO FEMSTOP SLOWLY LOWERED TO 130 NO BLEEDING OR HEMATOMA NOTED
--- NOTE | 2018-08-16 14:52 | NUR ---
PRESSURE TO FEMSTOP LOWERED TO 100 WITH NO BLEEDING NOTED. PATIENT VERBALIZED RELIEF OF PAIN TO AREA. VSS AND NAUSEA DENIED
--- NOTE | 2018-08-16 15:02 | NUR ---
PRESSURE SLOWLY LOWERED TO 65 WITH NO SIGNS OF BLEEDING OR HEMATOMA. VSS AND NO NAUSEA.
--- NOTE | 2018-08-16 15:34 | NUR ---
FEMSTOP LOWERED TO 15 WITH NO BLEEDING NOTED
--- NOTE | 2018-08-16 15:44 | NUR ---
FEMSTOP REMOVED WITH DRESSING APPLIED. NO BLEEDING OR HEMATOMA TO R/GROIN. VSS AND PATIENT DENIED PAIN OR NEEDS
--- NOTE | 2018-08-16 16:15 | NUR ---
PATIENT RESTING, VSS ON ROOM AIR. RIGHT GROIN DRESSING IS CDI, NO S/S OF BLEEDING OR HEMATOMA. NO C/O PAIN, NUMBNESS, OR TINGLING. TOLERATING PO FLUIDS, NO N/V.
--- NOTE | 2018-08-16 16:30 | NUR ---
HEAD OF BED ELEVATED TO 30 DEGREES, RIGHT GROIN DRESSING IS CDI, NO S/S OF BLEEDING OR HEMATOMA. NO C/O PAIN, NUMBNESS, OR TINGLING. PATIENT EATING TURKEY SANDWICH AND DRINKING SPRITE, NO N/V. VSS ON ROOM AIR.
--- NOTE | 2018-08-16 17:00 | NUR ---
HEAD OF BED AT 90 DEGREES, RIGHT GROIN DRESSING IS CDI, NO S/S OF BLEEDING OR HEMATOMA. NO C/O PAIN, NUMBNESS, OR TINGLING. VSS ON ROOM AIR. IV REMOVED. EDUCATION REGARDING DISCHARGE INSTRUCTIONS AND MEDICATION COMPLIANCE GIVEN TO PATIENT, PATIENT VOICES UNDERSTANDING.
--- NOTE | 2018-08-16 17:15 | NUR ---
PATIENT VOIDED WITHOUT DIFFICULTY. VSS ON ROOM AIR. RIGHT GROIN DRESSING IS CDI, NO S/S OF BLEEDING OR HEMATOMA.
--- NOTE | 2018-08-16 17:25 | NUR ---
PATIENT TRANPORTED VIA WHEELCHAIR TO CAR WITH SPOUSE DRIVING, ALL BELONGINGS WITH PATIENT.
== END 2018-08-16 17:25 ==
LOC: D.CATH 10:43
PROVIDERS: ATTEND Internal Medicine Cardiovascular Disease
DX: I20.9 Angina pectoris, unspecified (principal); R42 Dizziness and giddiness; Z01.812 Encounter for preprocedural laboratory examination
CPT/HCPCS: 36222; 36225; 93458; C9600

== ENCOUNTER 2019-01-03 08:00 | Outpatient (CLI) | payer MEDICARE ==
[2018-08-16 11:19] VITALS: BMI 26.9
[~2019-01-03 08:00] MED LIST changes: +PLAVIX75 MG PO; +PROBIOTIC BLEN1 EACH; +VITAMIN D31000 UNIT PO
== END 2019-01-03 23:59 | disposition home or self-care (01) ==
LOC: D.MAMMO 08:00
PROVIDERS: ATTEND Family Medicine
DX: Z12.31 Encounter for screening mammogram for malignant neoplasm of breast (principal)

== ENCOUNTER 2019-06-05 05:58 | Emergency (ER) | payer MEDICARE ==
[~2019-06-05] VITALS: Ht 175.3 cm; Wt 87.3 kg
[2019-06-05 05:59] VITALS: Ht 175.3 cm; Wt 87.3 kg
[2019-06-05] MEDS ORDERED: NORVASC5 MG PO (06:02)
[2019-06-05] MEDS ORDERED: COREG12.5 MG PO (06:02)
[2019-06-05] MEDS ORDERED: GABAPENTIN300 MG PO (06:03)
[2019-06-05] MEDS ORDERED: VISTARIL25 MG PO (06:08)
[2019-06-05] MEDS ORDERED: HYDROCODON-ACE1 EAC7 PO (07:57)
[2019-06-05 08:31] VITALS: BP 133/69
== END 2019-06-05 08:33 | disposition home or self-care (01) ==
LOC: D.ER 05:58
DX: S52.502A Unspecified fracture of the lower end of left radius, initial encounter for closed fracture (principal); S52.602A Unspecified fracture of lower end of left ulna, initial encounter for closed fracture; S82.892A Other fracture of left lower leg, initial encounter for closed fracture; W19.XXXA Unspecified fall, initial encounter; I10 Essential (primary) hypertension

== ENCOUNTER 2019-08-19 16:23 | Observation (INO) | payer MEDICARE ==
[~2019-08-19] VITALS: Ht 175.3 cm; Wt 87.1 kg
[~2019-08-19 16:23] MED LIST changes: +COREG12.5 MG PO; +GABAPENTIN300 MG PO; +NORVASC5 MG PO; -PROBIOTIC BLEN1 EACH; +PROBIOTIC BLEN1 EACH PO; +VISTARIL25 MG PO
[2019-08-19 16:58] LABS: BASOPHILS 0.4 % (0-2); HEMATOCRIT 41.5 % (36.0-48.0); HEMOGLOBIN 12.9 g/dL (12-16); IMMATURE GRANULOCYTES 0.7 % (0-5); LYMPHOCYTES 14.7 % (15-50); MCH 26.2 pg (26.0-34.0); MCHC 31.1 g/dL (31.0-37.0); MCV 84.2 fL (80.0-100.0); MEAN PLATELET VOLUME 9.3 fL (7.4-10.4); MONOCYTES 5.2 % (2-11); PLATELET COUNT 385 10x3/uL (130-400); RBC 4.93 10x6/uL (4.00-5.40); RDW 15.3 % (11.5-14.5); WBC 11.2 10x3/uL (4.8-10.8)
[2019-08-19 17:05] LABS: ANION GAP 14.8 mmol/L (8-16); CALCIUM 9.5 mg/dL (8.5-10.1); CARBON DIOXIDE 21.8 mmol/L (21.0-32.0); CREATININE - SERUM 1.2 mg/dL (0.6-1.3); POTASSIUM - SERUM 4.6 mmol/L (3.5-5.1)
[2019-08-19 17:12] LABS: ALBUMIN 4.1 g/dL (3.4-5.0); BILIRUBIN - TOTAL 0.3 mg/dL (0.2-1.3); PROTEIN - SERUM 7.8 g/dL (6.4-8.2)
[2019-08-19 18:44] LABS: BILIRUBIN NEGATIVE (NEGATIVE); GLUCOSE NEGATIVE (NEGATIVE); KETONE SMALL mg/dL (NEGATIVE); NITRITE NEGATIVE (NEGATIVE); SPECIFIC GRAVITY 1.025 (1.005-1.020); UROBILINOGEN NORMAL (NORMAL)
[2019-08-20 02:26] VITALS: BP 124/66; BMI 28.4
[2019-08-20 04:00] VITALS: BP 124/66
[2019-08-20 06:43] LABS: BASOPHILS 0.3 % (0-2); EOSINOPHILS 0.9 % (0-7); HEMATOCRIT 39.3 % (36.0-48.0); HEMOGLOBIN 12.1 g/dL (12-16); IMMATURE GRANULOCYTES 0.3 % (0-5); LYMPHOCYTES 24.2 % (15-50); MCH 25.9 pg (26.0-34.0); MCHC 30.8 g/dL (31.0-37.0); MEAN PLATELET VOLUME 9.5 fL (7.4-10.4); MONOCYTES 11.7 % (2-11); NEUTROPHILS 62.6 % (40-80); PLATELET COUNT 350 10x3/uL (130-400); RBC 4.68 10x6/uL (4.00-5.40); RDW 15.7 % (11.5-14.5)
[2019-08-20 06:45] LABS: APTT 25.6 SECONDS (22.8-39.4); PROTIME 13.2 SECONDS (11.6-15.0)
[2019-08-20 07:06] LABS: ALBUMIN 3.5 g/dL (3.4-5.0); ANION GAP 13.3 mmol/L (8-16); BILIRUBIN - TOTAL 0.51 mg/dL (0.2-1.3); CALCIUM 9.3 mg/dL (8.5-10.1); MAGNESIUM - SERUM 2.1 mg/dL (1.8-2.4); PHOSPHOROUS 3.3 mg/dL (2.5-4.9); POTASSIUM - SERUM 4.3 mmol/L (3.5-5.1); PROTEIN - SERUM 6.9 g/dL (6.4-8.2)
[2019-08-20 09:00] VITALS: BP 121/63
[2019-08-20] MEDS ORDERED: PERCOCET 5-3251 TAB PO (10:17)
[2019-08-20 11:09] VITALS: BP 133/66
--- NOTE | 2019-08-20 11:33 | NUR ---
PT ALERT X 4. BRUISING TO RIGHT BROW AND NOSE. BREATH SOUNDS CLEAR BILAT. DRESSING TO RIGHT SHOULDER CDI, BRUISING, ICE PACK IN PLACE. IV TO LEFT HAND, PATENT, DRESSING CDI. SCD'S IN USE. BED LOW, CALL LIGHT IN REACH. NO OTHER NEEDS AT THIS TIME.
--- NOTE | 2019-08-20 12:14 | MORECARE ---
CASE MANAGEMENT DISCHARGE SUMMARY PATIENT: KATELIN LLOYD UNIT: [id number] ADM DATE: 08/19/19 AGE: 73 : 46 SEX: F ROOM/BED: D.[facility] AUTHOR: CANDICE SAUCEDO PHYSICIAN: REFERRING PHYSICIAN: GORDO GUERIN MD DATE OF SERVICE: 08/20/19 Discharge Plan Patient Name: KATELIN LLOYD Facility: [facility]:[place] : 1945 Planned Disposition: Home Anticipated Discharge Date: 08/20/19 Discharge Date: Expected LOS: 1 Initial Reviewer: [email or web address] Initial Review Date: 08/20/2019 Generated: 08/20/19 1:14 pm Patient Name: KATELIN LLOYD Page 12986 at 1214 All edits/amendments must be made on the electronic document DICTATION DATE: 08/20/19 1214 BODY ART TECHNICIAN: DERREK 08/20/19 1214 RPT#: [id number] DC DATE: STATUS: ADM IN [facility] [address] [place] [address] END OF REPORT
--- NOTE | 2019-08-20 12:21 | MORECARE ---
CASE MANAGEMENT DISCHARGE SUMMARY PATIENT: KATELIN LLOYD UNIT: [id number] ADM DATE: 08/19/19 AGE: 73 : 46 SEX: F ROOM/BED: D.2232 AUTHOR: SHERYL,DOC PHYSICIAN: REFERRING PHYSICIAN: GORDO GUERIN MD DATE OF SERVICE: 08/20/19 Discharge Plan Patient Name: KATELIN LLOYD Facility: [facility]:[place] : 1945 Planned Disposition: Home Anticipated Discharge Date: 08/20/19 Discharge Date: Expected LOS: 1 Initial Reviewer: [email or web address] Initial Review Date: 08/20/2019 Generated: 08/20/19 1:21 pm Comments DCP- Discharge Planning Updated by [email or web address]: Christal Medina on 08/20/19 11:[address] Patient Name: KATELIN LLOYD Admission Status: ER Accout number: [id number] Admission Date: 08-19-2019 : 1945 Admission Diagnosis: Attending: GORDO GUERIN Current LOS: 1 Anticipated DC Date: 08-20-2019 Planned Disposition: Home Primary Insurance: [employer] MEDICARE PPO or HMO Discharge Planning Comments: CM met with patient to discuss discharge planning/needs. States she lives independently with her spouse. States she is very active at home. States she has a walker, but does not use it. States she is steady on her feet, she just slipped on her steps. States she is going to have railings put on her steps outside. She denies need for home health or DME. She has a sling on. I instructed her if she needed some stability to purchase a cane, voiced understanding. States her will pick her up for discharge and she anticipates to go home this afternoon. CM will continue to follow and assist with discharge planning/needs. Patient Admitting Representative: Christal Medina DCPIA - Discharge Planning Initial Assessment Updated by [email or web address]: Crhistal Medina on 08/20/19 12:14 pm * Is the patient Alert and Oriented? Yes * How many steps to enter\exit or inside your home? 3/0 * PCP Dr. De Santiago * Pharmacy [facility] [address] * Preadmission Environment Home with Family * ADLs Independent * Equipment Walker * List name and contact numbers for known caregivers / representatives who currently or will assist patient after discharge: [facility] - [phone] or [phone] * Verbal permission to speak to the caregivers and representatives has been obtained from the patient. Yes * Community resources currently utilized None * Additional services required to return to the preadmission environment? No * Can the patient safely return to the preadmission environment? Yes * Has this patient been hospitalized within the prior 30 days at any hospital? No Coverage Notice Reviewer: [email or web address] Frederic Medina Notice Issued Date-Time: 08/20/2019 12:18 Notice Type: Medicare Outpatient Observation Notice Notice Delivered To: Patient Relationship to Patient: Self Underwriting Analyst Name: Delivery Method: HAND - Hand Delivered Lore Days: Prior Verbal Notification: Recipient Understood Notice: Yes Recipient Signature: Yes Med Rec Note Co-signed by Attending: Coverage Notice Comment: ESTRADA delivered, explained, signed, copy placed in MR Last DP export: 08/20/19 11:15 a Patient Name: KATELIN LLOYD Page 19859 at 1221 All edits/amendments must be made on the electronic document DICTATION DATE: 08/20/19 1221 BLACK TOP RAKER: DERREK 08/20/19 1221 RPT#: [id number] DC DATE: STATUS: ADM IN [address] [place] [address] END OF REPORT
[2019-08-20 12:23] VITALS: BMI 28.3
[2019-08-20 12:38] VITALS: Ht 175.3 cm; Wt 87.1 kg
[2019-08-20 14:18] VITALS: BP 113/54
--- NOTE | 2019-08-20 16:02 | NUR ---
DISCHARGE PAPERWORK SIGNED, ALL QUESTIONS ANSWERED. IV TO LEFT HAND DC'D, TIP INTACT. ESCORTED OUT VIA WHEELCHAIR.
--- NOTE | 2019-08-20 17:49 | NUR ---
PT DC'D. MORPHINE SLIP LASTER WASTED 15ML, VERIFIED WITH STEVIE TSE RN. NOTED ON SLIP LASTER FLOWSHEET BUT PT DC'D OUT OF [facility] AND PHARMACY GONE FOR THE DAY.
--- NOTE | 2019-08-21 08:06 | OP ---
PATIENT NAME: KATELIN LLOYD MEDICAL RECORD: [id number] :47 LOCATION: D.2232 ADMISSION DATE:08/19/19 SURGEON: JOSESITO SANCHEZ DO DATE OF OPERATION: 08/19/2019 PROCEDURE PERFORMED: Right clavicle open reduction internal fixation. PREOPERATIVE DIAGNOSIS: Right clavicle closed displaced comminuted fracture. POSTOPERATIVE DIAGNOSIS: Right clavicle closed displaced comminuted fracture. INDICATIONS: Ms. Lloyd is a 73-year-old female who slipped and fell downstairs onto her right shoulder. She was seen in the ER and seen to have a comminuted 100% displaced right clavicle fracture and it was shortened. I saw her in the ER. 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 I informed her of the risks including infection, bleeding, damage to nerves and vessels, need for further surgery, malunion and nonunion and she signed a consent, also loss of reduction, failure of hardware. She signed a consent. She was aware that she could not lift anything for at least 6 weeks with that arm, I informed her of that, she consented to the procedure. DESCRIPTION SURGEON: Josesito Sanchez DO DESCRIPTION OF PROCEDURE: The patient was taken to the operative suite, laid in supine position, given general anesthetic and LMA was placed. She was then given 2 grams of Ancef preoperatively. The patient was then sat up about 30 degrees in the beach chair position and then the right shoulder was prepped and draped in sterile fashion. Timeout for performed. Everyone was in agreeance with the correct side, site, patient, and procedure. Then a careful dissection was made down with an incision with 15-blade over the clavicle. Careful dissection was made down to the clavicle itself. The fracture was reduced. I attempted to put an anterior plate on, but it did not hold the fracture, adequately reduced. Therefore, I switched to a superior plate. Superior plate was then put on, it was Acumed lateral with locking screws laterally, the plate that fit the best, and then once the plate was put on, put screws in the medial and lateral, and once it was of adequate reduction and holding very well, x-rays were taken in AP and superior to ensure the plate was in good position and it was. The fracture was well reduced. We then irrigated and put an Emili powder in the wound and the fascia was closed over the plate with a 2-0 Vicryl in simple fashion and 3-0 Vicryl in inverted interrupted fashion on the skin, 4-0 Monocryl ran on the skin and Prineo glue placed on the skin. Once the glue had dried, she was dressed with Telfa and Tegaderm, put in a sling, awakened and taken to recovery in stable condition. Blood loss was approximately 100 mL. COMPLICATIONS: None. TRANSINT:[id number] Voice Confirmation ID: [id number] DOCUMENT ID: [id number] OPERATIVE REPORT [id number] KATELIN LLOYD MICHAEL D, DO at 0806 CC: [id number] DICTATION DATE: 08/20/19 1022 NOTCH MACHINE OPERATOR: 08/20/19 1630 DIS IN 08/20/19 [facility] [address] [place] [address]
--- NOTE | 2019-08-21 14:36 | MORECARE ---
CASE MANAGEMENT DISCHARGE SUMMARY PATIENT: KATELIN LLOYD UNIT: [id number] ADM DATE: 08/19/19 AGE: 73 : 46 SEX: F ROOM/BED: D.2232 AUTHOR: CANDICE SAUCEDO PHYSICIAN: REFERRING PHYSICIAN: GORDO GUERIN MD DATE OF SERVICE: 08/21/19 Discharge Plan Patient Name: KATELIN LLOYD Facility: [facility]:[place] : 1945 Planned Disposition: Home Anticipated Discharge Date: 08/20/19 Discharge Date: 08/20/2019 Expected LOS: 1 Initial Reviewer: [email or web address] Initial Review Date: 08/20/2019 Generated: 08/21/19 3:35 pm Comments DCP- Discharge Planning Updated by [email or web address]: Christal Medina on 08/20/19 11:[address] Patient Name: KATELIN LLOYD Admission Status: ER Accout number: [id number] Admission Date: 08-19-2019 : 1945 Admission Diagnosis: Attending: GORDO GUERIN Current LOS: 1 Anticipated DC Date: 08-20-2019 Planned Disposition: Home Primary Insurance: [employer] MEDICARE PPO or HMO Discharge Planning Comments: CM met with patient to discuss discharge planning/needs. States she lives independently with her spouse. States she is very active at home. States she has a walker, but does not use it. States she is steady on her feet, she just slipped on her steps. States she is going to have railings put on her steps outside. She denies need for home health or DME. She has a sling on. I instructed her if she needed some stability to purchase a cane, voiced understanding. States her will pick her up for discharge and she anticipates to go home this afternoon. CM will continue to follow and assist with discharge planning/needs. Enterprise Integration Architect: Christal Medina DCPIA - Discharge Planning Initial Assessment Updated by [email or web address]: Christal Medina on 08/20/19 12:14 pm * Is the patient Alert and Oriented? Yes * How many steps to enter\exit or inside your home? 3/0 * PCP Dr. De Santiago * Pharmacy [facility] [address] * Preadmission Environment Home with Family * ADLs Independent * Equipment Walker * List name and contact numbers for known caregivers / representatives who currently or will assist patient after discharge: Jacky mcgee - [phone] or [phone] * Verbal permission to speak to the caregivers and representatives has been obtained from the patient. Yes * Community resources currently utilized None * Additional services required to return to the preadmission environment? No * Can the patient safely return to the preadmission environment? Yes * Has this patient been hospitalized within the prior 30 days at any hospital? No Coverage Notice Reviewer: [email or web address] Frederic Medina Notice Issued Date-Time: 08/20/2019 12:18 Notice Type: Medicare Outpatient Observation Notice Notice Delivered To: Patient Relationship to Patient: Self Accounts Receivable Coordinator Name: Delivery Method: HAND - Hand Delivered Lore Days: Prior Verbal Notification: Recipient Understood Notice: Yes Recipient Signature: Yes Med Rec Note Co-signed by Attending: Coverage Notice Comment: ESTRADA delivered, explained, signed, copy placed in MR Last DP export: 08/20/19 11:21 a Patient Name: KATELIN LLOYD Page 35504 at 1436 All edits/amendments must be made on the electronic document DICTATION DATE: 08/21/191434 CAR SHAGGER: DERREK 08/21/19 143 RPT#: [id number] DC DATE:08/20/19 STATUS: DIS IN [facility] [address] [place] [address] END OF REPORT
== END 2019-08-20 16:03 | disposition home or self-care (01) ==
LOC: D.ER 16:23 → D.MS 17:53 → OBSVTIME 17:53 → D.ER 18:45 → D.MS 08-20 16:03
PROVIDERS: Family Medicine; ADMIT Internal Medicine Nephrology; ATTEND Internal Medicine Nephrology
DX: S42.001A Fracture of unspecified part of right clavicle, initial encounter for closed fracture (principal); W19.XXXA Unspecified fall, initial encounter; I10 Essential (primary) hypertension; N17.9 Acute kidney failure, unspecified; I25.10 Atherosclerotic heart disease of native coronary artery without angina pectoris; G25.81 Restless legs syndrome

== ENCOUNTER → 2020-01-12 18:53 | Outpatient (CLI) | payer MEDICARE ==
[2019-08-20 12:38] VITALS: BMI 28.4
== END | disposition home or self-care (01) ==
LOC: D.LABREF 18:53
PROVIDERS: ATTEND Orthopaedic Surgery
DX: M17.12 Unilateral primary osteoarthritis, left knee (principal)

== ENCOUNTER 2020-02-13 16:21 | Inpatient (IN) | payer MEDICARE ==
[~2020-02-13] VITALS: Ht 175.3 cm; Wt 87.3 kg
[2020-02-14] MEDS ORDERED: RESTORIL15 MG PO (14:43)
[2020-02-15 09:51] LABS: BASOPHILS 0.5 % (0-2); EOSINOPHILS 2.4 % (0-7); HEMATOCRIT 40.5 % (36.0-48.0); HEMOGLOBIN 12.9 g/dL (12-16); IMMATURE GRANULOCYTES 0.3 % (0-5); LYMPHOCYTES 29.5 % (15-50); MCHC 31.9 g/dL (31.0-37.0); MCV 81.5 fL (80.0-100.0); MEAN PLATELET VOLUME 9.4 fL (7.4-10.4); MONOCYTES 8.4 % (2-11); NEUTROPHILS 58.9 % (40-80); PLATELET COUNT 408 10x3/uL (130-400); RBC 4.97 10x6/uL (4.00-5.40); RDW 15.1 % (11.5-14.5); WBC 6.2 10x3/uL (4.8-10.8)
[2020-02-15 09:59] LABS: INR 0.93 (0.85-1.17); PROTIME 12.4 SECONDS (11.6-15.0)
[2020-02-15 10:00] LABS: APTT 27.7 SECONDS (22.8-39.4)
[2020-02-15 10:01] LABS: ANION GAP 11.1 mmol/L (8-16); CALCIUM 9.9 mg/dL (8.5-10.1); CARBON DIOXIDE 25.1 mmol/L (21.0-32.0); CREATININE - SERUM 1.2 mg/dL (0.6-1.3); POTASSIUM - SERUM 4.2 mmol/L (3.5-5.1)
[2020-02-15 10:14] LABS: BILIRUBIN NEGATIVE (NEGATIVE); KETONE NEGATIVE (NEGATIVE); NITRITE NEGATIVE (NEGATIVE); UROBILINOGEN NORMAL mg/dL (< 2)
[2020-02-15] MEDS ORDERED: OMEPRAZOLE20 M1 PO (10:50)
[2020-02-21 06:08] VITALS: BP 131/57; BMI 28.4
[2020-02-21] MEDS ORDERED: ULTRAM50 MG PO (06:24)
--- NOTE | 2020-02-21 06:44 | NUR ---
CAUTERY PAD PLACED ON RIGHT THIGH. PLASMA BLADE USED ON SETTING 6/8. AQUAMANTIS USED ON SETTING 170. CAUTERY PAD LOT#[id number] EXP. 04/29/2021
[2020-02-21 10:07] VITALS: BP 132/61
[2020-02-21 10:48] VITALS: BP 121/57; Ht 175.3 cm; Wt 87.3 kg
--- NOTE | 2020-02-21 11:00 | NUR ---
RECEIVED PT FROM PACU. VS WNL. PIV TO RIGHT HAND, PATENT AND INFUSING, NO REDNESS OR SWELLING. O2 SAT 98%, VIA NC AT 3L. PT AROUSES TO VOICE, O X4. JONELLE WRAP ON LEFT KNEE C/D/I. SCDS ON. SPOUSE AT BEDSIDE, EDUCATED ON CL AND NEEDS, VERBALIZED UNDERSTANDING. BED LOW, RAILS X2, ALARM ON, CL IN REACH. WILL CONTINUE TO MONITOR.
--- NOTE | 2020-02-21 12:15 | NUR ---
PT C/O PAIN 12/18, PROVIDED PAIN MEDS PER ORDER. BED LOW, CL IN REACH.
--- NOTE | 2020-02-21 12:21 | NUR ---
PT C/O PAIN TO KNEE. STATES ITS BAD 8/10 ON SCALE. DILAUDID NOTED IN THE PACU AREA SO OXY IR 5 MG PO GIVEN. NO FURTHER COMPLAINTS. ABLE TO MOVE TOES AND THEY ARE WARM AND PINK BED ALARM ACTIVATED
--- NOTE | 2020-02-21 13:40 | OP ---
PATIENT NAME: KATELIN LLOYD MEDICAL RECORD: [id number] :47 LOCATION:D.M3 D.1208 ADMISSION DATE:02/21/20 SURGEON: LONNY SANCHEZ DO DATE OF OPERATION: 02/21/2020 PROCEDURE PERFORMED: Left total knee arthroplasty. PREOPERATIVE DIAGNOSIS: Left knee osteoarthritis. POSTOPERATIVE DIAGNOSIS: Left knee osteoarthritis. INDICATIONS: Ms. Lloyd is a 74-year-old female well known to me, who has had left knee pain for quite some time. She has been getting injections to no avail. She wanted something done surgically. She is tired of this affecting her activity of daily living. She was aware of the risks including infection, bleeding, damage to nerves or vessels, need for further surgery, fracture, continued pain, failure of implant, loosening and arthrofibrosis of the knee and blood clots, and even . Signed the consent. SURGEON: Lonny Sanchez DO DESCRIPTION OF PROCEDURE: The patient was taken to the operative suite, laid in supine position, given general anesthetic, given 2 grams of Ancef, 80 mg of gentamicin and a gram of TXA. She was then sedated and LMA was placed. After given a block by anesthesia in preoperative area, left lower extremity was then prepped and draped in sterile fashion. Timeout was performed. Everyone was in agreeance with the correct site, side, patient and procedure. I then marked out an incision over the anterior knee, covered in Ioban. I then made an incision with a #10 blade scalpel. I then used a fresh 10 blade, did a medial parapatellar approach to the capsule, any bleeding was coagulated with the Aquamantys. We then everted the patella and milled it down and removed part of the fat pad. I then removed the ACL and went to the femoral canal and then the cut the distal femur off the femoral canal. I then exposed the proximal tibia and cut the proximal tibia also and removed the bone and the menisci. I then used a 10 extension block, fit very well. I then flexed up the knee and sized the femur to be a 67.5. We used a 4-in-1 cutting block and tripp wing to ensure there was no notching. We then used the PS cutting block and cut out the notch for the PS knee. I then put the trial on and put a 12 poly with a 71 tray and ranged it and marked rotation. I had drilled holes for the femur and then exposed the tibia and used with 80 modular finned stem. I reamed and punched the tibia and then put extra holes in the tibia for the cement. Cement was then mixed after the tibia was cleaned off, put the cement in the tibia and on the implant, impacted in place, removed excess cement, impacted the femur on, put a poly in between, brought the knee into extension and then cleaned out the patella, put cement on the patella and on the implant and screws in place, removed excess cement and then put a solution of 10% povidine iodine and 500 mL of normal saline and the need to sit for 3 minutes, irrigated out and then sized the poly up to an 18; 18 fit very well and good range of motion and good stability in flexion and extension and decided to go with a PS plus bearing and locked it into place. I then put in Emili and vancomycin and tobramycin powder and closed the capsule with #1 Vicryl in paxqkg-di-atjqi fashion. This was done by myself and Micah Rascon, certified surgical assistant professor surgical technology. Micah then closed the skin with 2-0 Vicryl inverted interrupted fashion. ZipLine placed on the knee, Adaptic, 4 x 4's, ABD, Webril, Mike wrap and WILFRED stockings were placed on the knee. She was awakened and taken to recovery in stable condition. Blood OPERATIVE REPORT [id number] LLOYD,KATELIN L loss was approximately 200 mL. COMPLICATIONS: None. TRANSINT:[id number] Voice Confirmation ID: [id number] DOCUMENT ID: [id number] LONNY SANCHEZ DO at 1340 CC: [id number] DICTATION DATE: 02/21/20 09 CREAM BEATER: 02/21/20 1231 ADM IN [facility] [address] [place] [address]
--- NOTE | 2020-02-21 13:45 | NUR ---
PT AMBULATED TO BR WITH PT, TOLERATED WELL. BED LOW, CL IN REACH.
[2020-02-21 16:00] VITALS: BP 135/77
--- NOTE | 2020-02-21 16:30 | NUR ---
PT C/O PAIN 12/18, PROVIDED MEDS PER ORDER, TOLERATED WELL. BED LOW, CL IN REACH.
--- NOTE | 2020-02-21 18:20 | NUR ---
PLACED PT ON CPM MACHIENE, TOLERATED WELL. BED LOW, CL IN REACH.
[2020-02-21 19:43] VITALS: BP 131/68
--- NOTE | 2020-02-21 20:00 | NUR ---
ALERT RESTING IN BED CPM IN USE, REQUESTING TO USE BEDPAN, VOIDED 100CC, BACK ON CPM [id number], SEE SHIFT ASSESSMENT, CALL LIGHT IN REACH, MEDICATED FOR PAIN ORDERED
[2020-02-22 00:10] VITALS: BP 121/73
[2020-02-22 04:00] VITALS: BP 123/65
[2020-02-22 05:06] LABS: HEMATOCRIT 34.8 % (36.0-48.0); MCH 25.7 pg (26.0-34.0); MCHC 31.6 g/dL (31.0-37.0); MCV 81.3 fL (80.0-100.0); MEAN PLATELET VOLUME 9.1 fL (7.4-10.4); RBC 4.28 10x6/uL (4.00-5.40); RDW 14.9 % (11.5-14.5); WBC 12.2 10x3/uL (4.8-10.8)
--- NOTE | 2020-02-22 07:04 | NUR ---
RECEIVED BEDSIDE REPORT. PT LAYING IN BED EYES CLOSED, EVEN RESPIRATIONS. PIV TO RIGHT HAND, PATENT AND INFUSING, NO REDNESS OR SWELLING. O2 VIA NC AT 3L. CPM TO LEFT LEG. SCD TO RIGHT LEG. BED LOW, ALARM ON, CL IN REACH. WILL CONTINUE TO MONITOR.
[2020-02-22 07:45] VITALS: BP 150/71
[2020-02-22 07:54] VITALS: BP 141/70
--- NOTE | 2020-02-22 08:42 | NUR ---
PT C/O PAIN 12/18, PROVIDED MEDS PER ORDER, PT TOLERATED WELL. BED LOW, CL IN REACH.
[2020-02-22 11:25] VITALS: BP 132/65
--- NOTE | 2020-02-22 13:01 | NUR ---
PT C/O PAIN 01/18, PROVIDED MEDS PER ORDER. PT TOLERATED WELL. CHAIR ALARM ON, CL IN REACH.
--- NOTE | 2020-02-22 16:12 | NUR ---
Rehab Prescreening Consult recieved and the chart has been reviewed. She is POD#1. She is [employer] Medicare PPO and will require a preauth. She will need an OT eval which has been ordered but pending. Rehab will follow her and submit all information once the OT eval is completed to [facility] for review. Eloina Sidhu RN Clinical Liaison, Rehab
--- NOTE | 2020-02-22 16:17 | MORECARE ---
CASE MANAGEMENT DISCHARGE SUMMARY PATIENT: KATELIN LLOYD UNIT: [id number] ADM DATE: 02/21/20 AGE: 74 : 46 SEX: F ROOM/BED: D.1208 AUTHOR: CANDICE SAUCEDO PHYSICIAN: REFERRING PHYSICIAN: JOSESITO SANCHEZ DO DATE OF SERVICE: 02/22/20 Discharge Plan Patient Name: KATELIN LLOYD Facility: [facility]:[place] : 1945 Planned Disposition: Inpatient Rehab Anticipated Discharge Date: 02/24/20 Discharge Date: Expected LOS: 3 Initial Reviewer: [email or web address] Initial Review Date: 02/21/2020 Generated: 02/22/20 5:16 pm Patient Name: KATELIN LLOYD Page 32120 at 1617 All edits/amendments must be made on the electronic document DICTATION DATE: 02/22/20 1616 SENIOR PROGRAM PLANNER: DERREK 02/22/20 1616 RPT#: [id number] DC DATE: STATUS: ADM IN [facility] [address] [place] [address] END OF REPORT
--- NOTE | 2020-02-22 16:24 | MORECARE ---
CASE MANAGEMENT DISCHARGE SUMMARY PATIENT: KATELIN LLOYD UNIT: [id number] ADM DATE: 02/21/20 AGE: 74 : [birth year] SEX: F ROOM/BED: D.1208 AUTHOR: CANDICE SAUCEDO PHYSICIAN: REFERRING PHYSICIAN: JOSEISTO SANCHEZ DO DATE OF SERVICE: 02/22/20 Discharge Plan Patient Name: KATELIN LLOYD Facility: [facility]:[place] : 1945 Planned Disposition: Inpatient Rehab Anticipated Discharge Date: 02/24/20 Discharge Date: Expected LOS: 3 Initial Reviewer: [email or web address] Initial Review Date: 02/21/2020 Generated: 02/22/20 5:23 pm Patient Name: KATELIN LLOYD Page 61898 at 1624 All edits/amendments must be made on the electronic document DICTATION DATE: 02/22/201623 GLOBAL ACCOUNT EXECUTIVE: DERREK 02/22/201623 RPT#: [id number] DC DATE: STATUS: ADM IN [facility] [address] [place] [address] END OF REPORT
--- NOTE | 2020-02-22 16:39 | MORECARE ---
CASE MANAGEMENT DISCHARGE SUMMARY PATIENT: KATELIN LLOYD UNIT: [id number] ADM DATE: 02/21/20 AGE: 74 : 46 SEX: F ROOM/BED: D.1208 AUTHOR: CANDICE SAUCEDO PHYSICIAN: REFERRING PHYSICIAN: JOSESIOT SANCHEZ DO DATE OF SERVICE: 02/22/20 Discharge Plan Patient Name: KATELIN LLOYD Facility: [facility]:[place] : 1945 Planned Disposition: Inpatient Rehab Anticipated Discharge Date: 02/24/20 Discharge Date: Expected LOS: 3 Initial Reviewer: [email or web address] Initial Review Date: 02/21/2020 Generated: 02/22/20 5:38 pm Comments DCP- Discharge Planning Updated by [email or web address]: Shari Barriga on 02/22/20 3:[address] DC Plan: [facility] pending prior authorization. CM met with patient for DC planning. Patient is in agreement to same. Patient lives in a house with her , Jacky Lloyd ([phone]). Steps to enter the home, 3 w/rails. PCP: Dr. De Santiago. Pharmacy: [facility]. DME: CPM, BSC, Walker, ice wrap. CM discussed HHS, OP Therapy, SNF, Rehab. Patient would like to go into [facility] Re[facility], if her insurance will authorize. If she goes home, she will use [facility]. CM notified Natividad, [facility] of same and she states she will start the prior authorization process. Patient's will drive patient home upon DC. Patient voices no additional needs at this time. DCPIA - Discharge Planning Initial Assessment Updated by [email or web address]: Shari Barriga on 02/22/20 4:35 pm * Is the patient Alert and Oriented? Yes * How many steps to enter\exit or inside your home? 3 w/rails * PCP Dr. De Santiago * Pharmacy [facility] * Preadmission Environment Home with Family * ADLs Independent * Equipment Bedside Commode Rolling Walker * Other Equipment CPM, Ice wrap * List name and contact numbers for known caregivers / representatives who currently or will assist patient after discharge: Jacky Lloyd [phone] * Verbal permission to speak to the caregivers and representatives has been obtained from the patient. Yes * Community resources currently utilized None * Please name any agencies selected above. [facility] * Additional services required to return to the preadmission environment? Yes * Can the patient safely return to the preadmission environment? No * Has this patient been hospitalized within the prior 30 days at any hospital? No Last DP export: 02/22/20 3:24 Patient Name: KATELIN LLOYD Page 42247 at 1639 All edits/amendments must be made on the electronic document DICTATION DATE: 02/22/201637 BENDING PRESS OPERATOR: DERREK 02/22/201637 RPT#: [id number] DC DATE: STATUS: ADM IN [facility] [address] [place] [address] END OF REPORT
--- NOTE | 2020-02-22 17:30 | NUR ---
PT C/O PAIN 12/18, PROVIDED MEDS PER ORDER. PT TOLERATED WELL. BED LOW, CL IN REACH.
[2020-02-22 20:00] VITALS: BP 150/71
--- NOTE | 2020-02-22 20:00 | NUR ---
ALERT RESTING IN BED CPM IN USE, REPORTS PAIN TOLERABLE AT THIS TIME, SEE SHIFT ASSESSMENT, CALL LIGHT IN REACH
[2020-02-23 04:00] VITALS: BP 126/65
[2020-02-23 07:05] LABS: HEMATOCRIT 30.6 % (36.0-48.0); HEMOGLOBIN 9.6 g/dL (12-16); MCH 25.6 pg (26.0-34.0); MCHC 31.4 g/dL (31.0-37.0); MCV 81.6 fL (80.0-100.0); MEAN PLATELET VOLUME 9.1 fL (7.4-10.4); RBC 3.75 10x6/uL (4.00-5.40); RDW 14.9 % (11.5-14.5); WBC 11.4 10x3/uL (4.8-10.8)
--- NOTE | 2020-02-23 07:15 | NUR ---
RECEIVED BEDSIDE REPORT. PT LAYING IN BED A&O X4. PIV TO RIGHT HAND, PATENT AND S/L, NO REDNESS OR SWELLING. JONELLE WRAP TO LEFT KNEE, LLE IN CPM, SCD TO RLE. EDUCATED PT ON CL AND NEEDS, VERBALIZED UNDERSTANDING. BED LOW, CL IN REACH, WILL CONTINUE TO MONITOR.
[2020-02-23 07:57] VITALS: BP 139/72
--- NOTE | 2020-02-23 08:00 | NUR ---
REMOVED CPM FROM PT LLE. DENIES FURTHER NEEDS. BED LOW, CL IN REACH.
--- NOTE | 2020-02-23 08:30 | NUR ---
ASSISTED PT TO RESTROOM, PT ABLE TO AMBULATE WITH WALKER, TOLERATED WELL, AMBULATED BACK TO BED. BED LOW, CL IN REACH.
--- NOTE | 2020-02-23 09:30 | NUR ---
PT C/O PAIN 01/18, PROVIDED MEDICATIONS PER ORDER. PT TOLERATED WELL. BED LOW, CL IN REACH.
[2020-02-23 12:28] VITALS: BP 134/69
--- NOTE | 2020-02-23 13:28 | NUR ---
PT C/O PAIN 01/18, PROVIDED PAIN MEDS PER ORDER, PT TOLERATED WELL. BED LOW, CL IN REACH.
--- NOTE | 2020-02-23 15:23 | MORECARE ---
CASE MANAGEMENT DISCHARGE SUMMARY PATIENT: KATELIN LLOYD UNIT: [id number] ADM DATE: 02/21/20 AGE: 74 : 46 SEX: F ROOM/BED: D.1208 AUTHOR: CANDICE SAUCEDO PHYSICIAN: REFERRING PHYSICIAN: JOSESITO SANCHEZ DO DATE OF SERVICE: 02/23/20 Discharge Plan Patient Name: KATELIN LLOYD Facility: [facility]:[place] : 1945 Planned Disposition: Inpatient Rehab Anticipated Discharge Date: 02/24/20 Discharge Date: Expected LOS: 3 Initial Reviewer: [email or web address] Initial Review Date: 02/21/2020 Generated: 02/23/20 4:23 pm Comments DCP- Discharge Planning Updated by [email or web address]: Shari Barriga on 02/22/20 3:[address] DC Plan: [facility] pending prior authorization. CM met with patient for DC planning. Patient is in agreement to same. Patient lives in a house with her , Jacky Lloyd ([phone]). Steps to enter the home, 3 w/rails. PCP: Dr. De Santiago. Pharmacy: [facility]. DME: CPM, BSC, Walker, ice wrap. CM discussed HHS, OP Therapy, SNF, Rehab. Patient would like to go into [facility], if her insurance will authorize. If she goes home, she will use [facility]. CM notified Natividad, [facility] of same and she states she will start the prior authorization process. Patient's will drive patient home upon DC. Patient voices no additional needs at this time. DCPIA - Discharge Planning Initial Assessment Updated by [email or web address]: Shari Barriga on 02/22/20 4:35 pm * Is the patient Alert and Oriented? Yes * How many steps to enter\exit or inside your home? 3 w/rails * PCP Dr. De Santiago * Pharmacy [facility] * Preadmission Environment Home with Family * ADLs Independent * Equipment Bedside Commode Rolling Walker * Other Equipment CPM, Ice wrap * List name and contact numbers for known caregivers / representatives who currently or will assist patient after discharge: Jacky Lloyd [phone] * Verbal permission to speak to the caregivers and representatives has been obtained from the patient. Yes * Community resources currently utilized None * Please name any agencies selected above. [facility] * Additional services required to return to the preadmission environment? Yes * Can the patient safely return to the preadmission environment? No * Has this patient been hospitalized within the prior 30 days at any hospital? No Last DP export: 02/22/20 3:39 Patient Name: KATELIN LLOYD Page 00167 at 1523 All edits/amendments must be made on the electronic document DICTATION DATE: 02/23/201522 OFFAL ROLLER: DERREK 02/23/201522 RPT#: [id number] DC DATE: STATUS: ADM IN [facility] [address] [place] [address] END OF REPORT
--- NOTE | 2020-02-23 15:32 | MORECARE ---
CASE MANAGEMENT DISCHARGE SUMMARY PATIENT: KATELIN LLOYD UNIT: [id number] ADM DATE: 02/21/20 AGE: 74 : 47 SEX: F ROOM/BED: D.1208 AUTHOR: CANDICE SAUCEDO PHYSICIAN: REFERRING PHYSICIAN: JOSESITO SANCHEZ DO DATE OF SERVICE: 02/23/20 Discharge Plan Patient Name: KATELIN LLOYD Facility: [facility]:[place] : 1945 Planned Disposition: Inpatient Rehab Anticipated Discharge Date: 02/24/20 Discharge Date: Expected LOS: 3 Initial Reviewer: [email or web address] Initial Review Date: 02/21/2020 Generated: 02/23/20 4:32 pm Comments DCP- Discharge Planning Updated by [email or web address]: Shari Barriga on 02/22/20 3:[address] DC Plan: [facility] pending prior authorization. CM met with patient for DC planning. Patient is in agreement to same. Patient lives in a house with her , Jacky Lloyd ([phone]). Steps to enter the home, 3 w/rails. PCP: Dr. De Santiago. Pharmacy: [facility]. DME: CPM, BSC, Walker, ice wrap. CM discussed HHS, OP Therapy, SNF, Rehab. Patient would like to go into [facility], if her insurance will authorize. If she goes home, she will use [facility]. CM notified Natividad, [facility] of same and she states she will start the prior authorization process. Patient's will drive patient home upon DC. Patient voices no additional needs at this time. DCPIA - Discharge Planning Initial Assessment Updated by [email or web address]: Shari Barriga on 02/22/20 4:35 pm * Is the patient Alert and Oriented? Yes * How many steps to enter\exit or inside your home? 3 w/rails * PCP Dr. De Santiago * Pharmacy [facility] * Preadmission Environment Home with Family * ADLs Independent * Equipment Bedside Commode Rolling Walker * Other Equipment CPM, Ice wrap * List name and contact numbers for known caregivers / representatives who currently or will assist patient after discharge: Jacky Lloyd [phone] * Verbal permission to speak to the caregivers and representatives has been obtained from the patient. Yes * Community resources currently utilized None * Please name any agencies selected above. [facility] * Additional services required to return to the preadmission environment? Yes * Can the patient safely return to the preadmission environment? No * Has this patient been hospitalized within the prior 30 days at any hospital? No Last DP export: 02/23/20 2:24 Patient Name: KATELIN LLOYD Page 41665 at 1532 All edits/amendments must be made on the electronic document DICTATION DATE: 02/23/201531 FINANCE BROKER: DERREK 02/23/201531 RPT#: [id number] DC DATE: STATUS: ADM IN [facility] [address] [place] [address] END OF REPORT
[2020-02-23 16:00] VITALS: BP 135/68
--- NOTE | 2020-02-23 16:21 | NUR ---
Rehab Note- PreAuth initiated and faxed at this time. Pending reference #[id number], faxed clinicals to [phone]. Will continue to await determination at this time. Thank you for this referral! Natividad Pathak RN CLinical Liaison, [facility] Rehab
--- NOTE | 2020-02-23 17:15 | NUR ---
PT C/O PAIN 12/18, PROVIDED MEDS PER ORDER, TOLERATED WELL. BED LOW, CL IN REACH.
[2020-02-23 19:58] VITALS: BP 130/68
[2020-02-24 05:00] VITALS: BP 145/75
[2020-02-24 07:29] VITALS: BP 114/57
--- NOTE | 2020-02-24 07:42 | NUR ---
PT ON CPM. STATES SHE IS HAVING SOME BACK PAIN FROM THE BED THAT IS A 8 OUT OF 10 ON THE PAIN SCALE. CL IN REACH. NO NEEDS AT THIS TIME. WCTM
[2020-02-24 07:57] LABS: ALBUMIN 2.6 g/dL (3.4-5.0); ANION GAP 9.7 mmol/L (8-16); BILIRUBIN - TOTAL 0.5 mg/dL (0.2-1.3); CALCIUM 9.3 mg/dL (8.5-10.1); CARBON DIOXIDE 28.2 mmol/L (21.0-32.0); PHOSPHOROUS 2.8 mg/dL (2.5-4.9); POTASSIUM - SERUM 3.9 mmol/L (3.5-5.1); PROTEIN - SERUM 6.2 g/dL (6.4-8.2)
[2020-02-24 08:11] LABS: BASOPHILS 0.2 % (0-2); EOSINOPHILS 2.6 % (0-7); HEMATOCRIT 30.8 % (36.0-48.0); HEMOGLOBIN 9.7 g/dL (12-16); IMMATURE GRANULOCYTES 0.8 % (0-5); MCH 25.7 pg (26.0-34.0); MCHC 31.5 g/dL (31.0-37.0); MCV 81.5 fL (80.0-100.0); MEAN PLATELET VOLUME 9.7 fL (7.4-10.4); MONOCYTES 13.5 % (2-11); NEUTROPHILS 65.9 % (40-80); PLATELET COUNT 324 10x3/uL (130-400); RBC 3.78 10x6/uL (4.00-5.40); RDW 14.8 % (11.5-14.5); WBC 8.7 10x3/uL (4.8-10.8)
[2020-02-24] MEDS ORDERED: ELIQUIS2.5 MG PO (10:12)
[2020-02-24] MEDS ORDERED: oxyCODONE IR PO (10:12)
[2020-02-24] MEDS ORDERED: KEFLEX500 MG PO (10:13)
--- NOTE | 2020-02-24 11:43 | NUR ---
IV THERAPY REMOVED. PT DOESN'T WANT HOME HEALTH. WOULD RATHER HAVE OUTPATIENT REHAB. WILL CALL SIDNEY HIGGINS WITH CASE MANAGEMENT AND NOTIFY HER. DISCHARGE INSTRUCTIONS HAVE BEEN GIVEN AND PT VOICED UNDERSTANDING. WAITING ON RONALDO WITH THESE CHANGES OF PLANS.
--- NOTE | 2020-02-24 12:41 | NUR ---
OT NOTE: PT DOING VERY WELL TODAY. SHE HAS DECIDED THAT SHE WANTS TO GO HOME VS REHAB. SHE IS ABLE TO AMB IN ROOM WITH WALKER WITHOUT ANY LOB..SHE EXHIBITS GOOD SAFETY AWARNESS. SHE PERFORMS TOILET TRANSFERS AND HYGIENE WITHOUT ASSIST. ABLE TO DUGLAS B SOCKS WITH SET UP. SHE REPORTS THAT WILL BE THERE AND WILL BE ABLE TO TAKE HER TO OP THERAPY. D/W NURSE HENRI. RONALDO ZABALA,OTR/L [phone]
--- NOTE | 2020-02-24 12:45 | NUR ---
PT LEFT WITH INSTRUCTIONS TO CALL [facility] IF SHE HAD NOT HEARD FROM THEM BY THURSDAY. VERBALIZED UNDERSTANDING. APPRECIATE
--- NOTE | 2020-02-24 13:11 | MORECARE ---
CASE MANAGEMENT DISCHARGE SUMMARY PATIENT: KATELIN LLOYD UNIT: [id number] ADM DATE: 02/21/20 AGE: 74 : 46 SEX: F ROOM/BED: D.1208 AUTHOR: CANDICE SAUCEDO PHYSICIAN: REFERRING PHYSICIAN: JOSESITO SNACHEZ DO DATE OF SERVICE: 02/24/20 Discharge Plan Patient Name: KATELIN LLOYD Facility: [facility]:[place] : 1945 Planned Disposition: Inpatient Rehab Anticipated Discharge Date: 02/24/20 Discharge Date: 02/24/2020 Expected LOS: 3 Initial Reviewer: [email or web address] Initial Review Date: 02/21/2020 Generated: 02/24/20 2:11 pm Comments DCP- Discharge Planning Updated by [email or web address]: Keily Abad on 02/24/20 12:[address] Patient Name: KATELIN LLOYD Admission Status: Elective Accout number: [id number] Admission Date: 02-21-2020 : 1945 Admission Diagnosis: Attending: JOSESITO SANCHEZ Current LOS: 3 Anticipated DC Date: 02-24-2020 Planned Disposition: Inpatient Rehab Primary Insurance: [employer] MEDICARE PPO or HMO Discharge Planning Comments: SPOKE WITH PATIENT TODAY AND SHE DOES NOT WANT TO GO TO [facility] OR HAVE HOME HEALTH. SHE WANTS OUTPATIENT PT. WOULD LIKE PT AT [facility], I HAVE FAXED ORDER TO PT HERE AT [facility]. THEY ARE CALLING TO GIVE HER APPOINTMENT TIME. IT WILL BE ON THURSDAY. CM TO FOLLOW AND ASSIST NEEDED. Leadership Development Manager: Keily Abad DCP- Discharge Planning Updated by [email or web address]: Shari Barriga on 02/22/20 3:[address] DC Plan: [facility] pending prior authorization. CM met with patient for DC planning. Patient is in agreement to same. Patient lives in a house with her , Jacky Lloyd ([phone]). Steps to enter the home, 3 w/rails. PCP: Dr. De Santiago. [facility]acy[facility]. DME: CPM, BSC, Walker, ice wrap. CM discussed HHS, OP Therapy, SNF, Rehab. Patient would like to go into [facility], if her insurance will authorize. If she goes home, she will use [facility]. CM notified Natividad, [facility] of same and she states she will start the prior authorization process. Patient's will drive patient home upon DC. Patient voices no additional needs at this time. DCPIA - Discharge Planning Initial Assessment Updated by [email or web address]: Shari Barriga on 02/22/20 4:35 pm * Is the patient Alert and Oriented? Yes * How many steps to enter\exit or inside your home? 3 w/rails * PCP Dr. De Santiago * Pharmacy [facility] * Preadmission Environment Home with Family * ADLs Independent * Equipment Bedside Commode Rolling Walker * Other Equipment CPM, Ice wrap * List name and contact numbers for known caregivers / representatives who currently or will assist patient after discharge: Jacky Lloyd [phone] * Verbal permission to speak to the caregivers and representatives has been obtained from the patient. Yes * Community resources currently utilized None * Please name any agencies selected above. [facility] * Additional services required to return to the preadmission environment? Yes * Can the patient safely return to the preadmission environment? No * Has this patient been hospitalized within the prior 30 days at any hospital? No Last DP export: 02/23/20 2:32 Patient Name: KATELIN LLOYD Page [id number] at 1311 All edits/amendments must be made on the electronic document DICTATION DATE: 02/24/20 1311 POLE SHAVER: DERREK 02/24/20 1311 RPT#: [id number] DC DATE:02/24/20 STATUS: DIS IN [facility] [address] [place] [address] END OF REPORT
--- NOTE | 2020-02-24 14:58 | MORECARE ---
CASE MANAGEMENT DISCHARGE SUMMARY PATIENT: KATELIN LLOYD UNIT: [id number] ADM DATE: 02/21/20 AGE: 74 : 46 SEX: F ROOM/BED: D.1208 AUTHOR: CANDICE SAUCEDO PHYSICIAN: REFERRING PHYSICIAN: JOSESITO SANCHEZ DO DATE OF SERVICE: 02/24/20 Discharge Plan Patient Name: KATELIN LLOYD Facility: [facility]:[place] : 1945 Planned Disposition: Inpatient Rehab Anticipated Discharge Date: 02/24/20 Discharge Date: 02/24/2020 Expected LOS: 3 Initial Reviewer: [email or web address] Initial Review Date: 02/21/2020 Generated: 02/24/20 3:57 pm Comments DCP- Discharge Planning Updated by [email or web address]: Keily Abad on 02/24/20 12:[address] Patient Name: KATELIN LLOYD Admission Status: Elective Accout number: [id number] Admission Date: 02-21-2020 : 1945 Admission Diagnosis: Attending: JOSESITO SANCHEZ Current LOS: 3 Anticipated DC Date: 02-24-2020 Planned Disposition: Inpatient Rehab Primary Insurance: A[employer] MEDICARE PPO or HMO Discharge Planning Comments: SPOKE WITH PATIENT TODAY AND SHE DOES NOT WANT TO GO TO [facility] OR HAVE HOME HEALTH. SHE WANTS OUTPATIENT PT. WOULD LIKE PT AT [facility], I HAVE FAXED ORDER TO PT HERE AT [facility]. THEY ARE CALLING TO GIVE HER APPOINTMENT TIME. IT WILL BE ON THURSDAY. CM TO FOLLOW AND ASSIST NEEDED. Bar Supervisor: Keily Abad DCP- Discharge Planning Updated by [email or web address]: Shari Barriga on 02/22/20 3:[address] DC Plan: [facility] pending prior authorization. CM met with patient for DC planning. Patient is in agreement to same. Patient lives in a house with her , Jacky Lloyd ([phone]). Steps to enter the home, 3 w/rails. PCP: Dr. De Santiago. Pharmacy[facility]. DME: CPM, BSC, Walker, ice wrap. CM discussed HHS, OP Therapy, SNF, Rehab. Patient would like to go into [facility], if her insurance will authorize. If she goes home, she will use [facility]. CM notified Natividad, [facility] of same and she states she will start the prior authorization process. Patient's will drive patient home upon DC. Patient voices no additional needs at this time. DCPIA - Discharge Planning Initial Assessment Updated by [email or web address]: Shari Barriga on 02/22/20 4:35 pm * Is the patient Alert and Oriented? Yes * How many steps to enter\exit or inside your home? 3 w/rails * PCP Dr. De Santiago * Pharmacy [facility] * Preadmission Environment Home with Family * ADLs Independent * Equipment Bedside Commode Rolling Walker * Other Equipment CPM, Ice wrap * List name and contact numbers for known caregivers / representatives who currently or will assist patient after discharge: Jacky Lloyd [phone] * Verbal permission to speak to the caregivers and representatives has been obtained from the patient. Yes * Community resources currently utilized None * Please name any agencies selected above. [facility] * Additional services required to return to the preadmission environment? Yes * Can the patient safely return to the preadmission environment? No * Has this patient been hospitalized within the prior 30 days at any hospital? No Last DP export: 02/24/20 12:11 Patient Name: KATELIN LLOYD Page [id number] at 1458 All edits/amendments must be made on the electronic document DICTATION DATE: 02/24/201456 FIELD MARKETING COORDINATOR: DERREK 02/24/201456 RPT#: [id number] DC DATE:02/24/20 STATUS: DIS IN [facility] [address] [place] [address] END OF REPORT
== END 2020-02-24 12:46 | disposition home or self-care (01) | DRG 470 ==
LOC: D.SDCHOLD 02-15 10:00 → D.M3 02-21 05:30 → D.SDCHOLD 02-21 05:30 → D.M3 02-21 09:10 → D.SDCHOLD 02-21 10:00 → D.M3 02-24 12:46
PROVIDERS: Emergency Medicine; ADMIT Orthopaedic Surgery; ATTEND Orthopaedic Surgery
PROC: 0SRD0J9 Replacement of Left Knee Joint with Synthetic Substitute, Cemented, Open Approach (ICD-10-PCS; principal; 2020-02-21 07:15)
DX: M17.12 Unilateral primary osteoarthritis, left knee (principal); D62 Acute posthemorrhagic anemia; I10 Essential (primary) hypertension; I25.10 Atherosclerotic heart disease of native coronary artery without angina pectoris

== ENCOUNTER → 2020-09-24 11:06 | Outpatient (CLI) | payer MEDICARE ==
[2020-02-21 10:48] VITALS: BMI 28.4
[~2020-09-24 11:06] MED LIST changes: +ELIQUIS2.5 MG PO; +OMEPRAZOLE20 M1 PO; +oxyCODONE IR PO
== END | disposition home or self-care (01) ==
LOC: D.MRI 09-17 10:30
PROVIDERS: ATTEND Family Medicine
DX: M54.16 Radiculopathy, lumbar region (principal)